=== PATIENT | female | born 1955 | race African-American/Black ===

== ENCOUNTER 2025-04-05 11:55 | Outpatient (CLI) | payer MEDICARE, SELFPAY ==
--- NOTE | ~2025-04-05 | XR_ITS ---
EXAMINATION: XR chest 2V, 04/05/2025 12:13 CDT HISTORY: Ex cigarette smoker COMPARISON: No comparisons available. Technique: 2 views obtained. Findings: Left lower lobe there is a nodule measuring 1.1 x 1 cm. The remaining lungs are clear. No pneumothorax. Heart is normal size. Mediastinal and hilar contours are within normal limits. Bony thorax no acute abnormality. Impression: Left lung nodule, CT chest recommended Reviewed, dictated and finalized at location A. Impression: Left lung nodule, CT chest recommended
== END 2025-04-05 11:56 | disposition home or self-care (01) ==
LOC: MICIMG 11:59
PROVIDERS: PCP Family Medicine; Visit Provider Family Medicine
DX: Z87.891 Personal history of nicotine dependence (principal); R91.1 Solitary pulmonary nodule
CPT/HCPCS: 71046

== ENCOUNTER 2025-05-17 12:33 | Outpatient (CLI) | payer MEDICARE, SELFPAY ==
--- NOTE | ~2025-05-17 | US_ITS ---
US thyroid INDICATION: Hyperthyroidism TECHNIQUE: Real-time sonographic images of the thyroid gland were obtained. COMPARISON: No prior studies for comparison. FINDINGS: The right thyroid lobe measures 4.3 x 2.3 x 1.5 cm. The left thyroid lobe measures 4.6 x 1.8 x 1.7 cm. There is normal echotexture and echogenicity throughout the thyroid gland. There are multiple bilateral thyroid nodules. Largest dominant mass in the right thyroid gland measures 1.7 x 1.6 x 1.5 cm and is solid, hypoechoic, taller than wide with circumscribed margins and punctate echogenic foci internally, TR 5. In the left lobe there is a solid hypoechoic circumscribed smoothly marginated mass which is wider than tall and no internal echogenic foci measuring 6 x 1.5 x 1.2 cm. There are smaller additional masses in the left lobe. IMPRESSION: 1. Recommend follow-up fine needle aspiration biopsy of dominant bilateral thyroid masses. Reviewed, dictated and finalized at location O. IMPRESSION: 1. Recommend follow-up fine needle aspiration biopsy of dominant bilateral thy roid masses.
== END 2025-05-17 12:34 | disposition home or self-care (01) ==
LOC: MICIMG 12:35
PROVIDERS: PCP Family Medicine; Visit Provider Family Medicine
DX: E05.90 Thyrotoxicosis, unspecified without thyrotoxic crisis or storm (principal)
CPT/HCPCS: 76536

== ENCOUNTER 2025-07-11 15:09 | Outpatient (CLI) | payer MEDICARE, SELFPAY ==
--- OUTSIDE RECORDS SUMMARY | 2025-07-11 15:00 | XMS_ITS | Encounter Summary ---
Author Organization [facility] [employer] [facility] Address [address] [place] [address] Care Team Providers Care Travel Med Surg Rn Name Role Phone Unavailable Primary Care Provider Unavailabl e Reason for Visit * Reason Comments Establish Care Encounter Details Date Type Department Care Team (Late st Contact Info) Description 07/11/2025 3:00 PM MOLD CAPPER HELPER Office Visit [facility] [place] [facility] - David [address] [facility] [address] [place] [address] Chralie Fair MD [address] [facility] [address] [place] [address] Chronic anemia (Primary Dx) Social History Tobacco Use Types Packs/Day Years Used Date Smoking Tobacco: Some Days Cigarettes Tobacco Cessation:Ready to Q uit: Not Asked; Counseling Given: Not Answered Alcohol Use Standard Drinks/Week Comments Yes 0 (1 standard drink = 0.6 oz pur e alcohol) Occasionally Comments Unknown Sex and Gender Information Value Date Recorded Sex Assigned at Not on file Legal Sex Female 11:43 AM CDT Gender Identity Not on file Sexual Orientation Not on file documented as of this encounter Last Filed Vital Signs Vital Sign Reading Time Taken Comments Blood Pressure 139/81 07/11/2025 2:44 PM MOLD CAPPER HELPER Pulse 81 07/11/2025 2:44 PM MOLD CAPPER HELPER Temperature 36.9 C (98.4 F) 07/11/2025 2:44 PM MOLD CAPPER HELPER Respiratory Rate 15 07/11/2025 2:44 PM MOLD CAPPER HELPER Oxygen Saturation 98% 07/11/2025 2:44 PM MOLD CAPPER HELPER Inhaled Oxygen Concentration - - Weight 52.1 kg (114 lb 12.8 oz) 07/11/2025 2:44 PM MOLD CAPPER HELPER Height 162.6 cm (5' 4) 07/11/2025 2:44 PM MOLD CAPPER HELPER Body Mass Index 19.71 07/11/2025 2:44 PM MOLD CAPPER HELPER documented in this encounter Progress Notes * Charlie Fair MD - 07/11/2025 2:45 PM CST Hematology-oncology consult Note Requesting Physician Primary Care Physician No primary care provider on file. Problem list There is no problem list on file for this patient. Previous TREATMENT ? Measurable Disease ? Reason for Visit Gerir Moreno is a 70 y.o. female who was referred for consultation for iron deficiency anemia. History of present illness This is a 70-year-old pleasant -[place] female with history of hypertension, anxiety and depression referred to me for anemia. She is quite tired and fatigued. She has lost 25 pound weight in1 year duration. She denies being a vegetarian but rarely eat red meat. She denies any previous stomach surgeries. She denies any bleeding including melena and hematochezia. She had EGD and colonoscopy done at [facility] in March 2025 that showed gastritis. She was taking oral iron but discontinued 3 weeks ago due to constipation. She is also worried about her weight loss. Denies any new lumps bumps and lymphadenopathy. She is going to have thyroid biopsy end of July due to thyroidnodule. Thyroid ultrasound was done on May 17, 2025 showed 1.7 x 1.6 x 1.5 cm right thyroid mass and biopsy was recommended. Denies any other complaints. Past Medical History Past Medical History: Diagnosis Date Anxiety state Depression Hypertension Surgical History Past Surgical History: Procedure Laterality Date HX CHOLECYSTECTOMY HX HYSTERECTOMY HX TUBAL LIGATION Medications Current Outpatient Medications Medication Sig Dispense Refill amLODIPine (NORVASC) 10 mg tablet Take 10 mg by mouth daily in the morning. busPIRone (BUSPAR) 10 mg tablet Take 1 Tablet by mouth 2 times daily. escitalopram oxalate (LEXAPRO) 20 mg tablet Take 20 mg by mouth daily. lisinopril-hydroCHLOROthiazide (ZESTORETIC) 20-12.5 mg tablet Take 2 Tablets by mouth daily. No current facility-administered medications for this visit. Allergies No Known Allergies Immunizations: There is no immunization history on file for this patient. Family History Family History Problem Relation Name Age of Onset No Known Problems Father Heart Disease Mother Diabetes Mother No Known Problems Brother No Known Problems Brother No Known Problems Brother Heart Disease Sister No Known Problems Sister No Known Problems Child No Known Problems Child Social History Social History Tobacco Use Smoking status: Some Days Types: Cigarettes Smokeless tobacco: Not on file Substance Use Topics Alcohol use: Yes Comment: Occasionally Review of Systems Constitutional: Patient did not mention fever; no night sweats; no anorexia; 25 pound weight loss in 1 year, complain of tiredness and fatigue NEENT: Patient did not mention headache; no change in vision; no change in hearing; no sore throat;no dysphagia Respiratory: Patient did not mention shortness of breath; no pleuritic chest pain; no cough; no hemoptysis Cardiac: Patient did not mention cardiac-like chest pain; no palpitations; no orthopnea; no PND; noDOE Breasts: Patient did not mention tenderness; no masses GI: Patient did not mention abdominal pain; no nausea; no vomiting; no diarrhea; no hematochezia; no melena : Patient did not mention dysuria; no frequency; no hesitancy; no hematuria CLINICAL UNIT COORDINATOR: Musculosketetal: Patient did not mention bone pain; no arthralgia; no joint swelling; no myalgia; Skin: Patient did not mention pruritis; no rash; no petechiae; no ecchymoses Endocrine: Patient did not mention polydipsia; no polyuria; no unusual weight gain Neuro: Patient did not mention headache; no change in vision; no sensory changes; no muscle weakness; no confusion; no seizures Psych: Patient did not mention anxiety; no depression; Physical Exam Vitals: As per nursing note Constitutional: Well developed, well nourished, no acute distress, non-toxic appearance Teeth and gum. No signs of infection or swelling. Eyes: PERRL, conjunctiva normal HEENT: Atraumatic, external ears normal, nose normal, oropharynx moist, no pharyngeal exudates. no sinus tenderness Neck- normal range of motion, no tenderness, supple Respiratory: No respiratory distress, normal breath sounds, no rales, no wheezing Cardiovascular: Normal rate, normal rhythm, no murmurs, no gallops, no rubs GI: Soft, nondistended, normal bowel sounds, nontender, no splenomegaly, no hepatomegaly, no mass, no rebound, no guarding : No costovertebral angle tenderness Musculoskeletal: No edema, no tenderness, no deformities. Back- no tenderness Integument: Well hydrated, no rash, Digits and nails inspection normal Lymphatic: No lymphadenopathy noted Neurologic: Alert & oriented x 3, CN 2-12 normal, normal motor function, normal sensory function, no focal deficits noted Psychiatric: Speech and behavior appropriate ? labs No results found for this or any previous visit (from the past 24 hours). Labs from March 2025 showed iron 41 saturation 10 B12 394 ferritin 15 WBC 5.7 hemoglobin 9.4 MCV 79 platelet 381,000 Pathology ? Imaging & Other Studies Performance Status? Assessment / Plan: ? Microcytic anemia. Patient is a pleasant 78-year-old -[place] female with been in good health except history of hypertension, anxiety and depression. Patient was recently found to have thyroid nodule and plan to have thyroid biopsy in July. She has been complaining of tiredness and fatigue and has lost 25 pound weight in 1 year duration. Denies any melena and hematochezia. She had EGD and colonoscopy done at [facility] on March 2025 that showed gastritis. She is intolerant to oral iron due to constipation and discontinued taking about 3 weeks ago. I have reviewed the labs. At this time I will repeat labs including CBC, CMP, iron profile, soluble transferrin receptor, B12 level, methylmalonic acid level, TSH and serum protein electrophoresis with immunofixation. My plan would be to start her on iron infusion as she is intolerant to oral iron. No need for bone marrow biopsy testing at this time. Follow-up in 2 weeks. Thyroid nodule. Ultrasound done on May 17, 2025 showed 1.7 x 1.6 x 1.5 cm right thyroid nodule.She is scheduled to have thyroid biopsy in July. Hypertension. Patient is on Zestril and amlodipine. Anxiety and depression. She is on BuSpar and Lexapro. Thank you very much for allowing me to participate in Gerri Moreno's evaluation and management. Please feel free to contact if I can be of any further assistance in your patient???s care requiring hematology or oncology evaluation. Sincerely, ? ? Charlie Fair M.D. cell TOBACCO COUNSELING She is not a tobacco/nicotine user. Charlie Fair MD ,07/11/2025 3:07 PM ? Total time spent 60 minutes, two third of the total time spent counseling patient [id number]. CC:? CAPPER HELPER documented in this encounter Plan of Treatment Upcoming Encounters Date Type Department Care Team (Late st Contact Info) Description 07/30/2025 4:30 PM MOLD CAPPER HELPER Telephone Check Up [facility] [place] [facility] - David [address] [facility] [address] [place] [address] Charlie Fair MD [address] [facility] [address] [place] [address] Scheduled Orders Name Type Priority Associated Diagnoses Orde r Schedule CBC WITH DIFFERENTIAL Lab Stat Chronic anemia Expected: 07/11/2025, Expires: 07/11/2026 COMPREHENSIVE METABOLIC PANEL Lab Stat Chronic anemia Expected: 07/11/2025, Expires: 07/11/2026 FERRITIN Lab Routine Chronic anemia Expected: 07/11/2025, Expires: 07/11/2026 IRON, TIBC, AND PERCENT SATURATION Lab Routine Chronic anemia Expected: 07/11/2025, Expires: 07/11/2026 METHYLMALONIC ACID Lab Routine Chronic anemia Expected: 07/11/2025, Expires: 07/11/2026 VITAMIN B12 AND FOLATE Lab Routine Chronic anemia Expected: 07/11/2025, Expires: 07/11/2026 TRANSFERRIN RECEPTOR TFR SOLUBLE Lab Routine Chronic anemia Expected: 07/11/2025, Expires: 07/11/2026 TSH Lab Routine Chronic anemia Expected: 07/11/2025, Expires: 07/11/2026 PROTEIN ELECTROPHORESIS W/REFLEX,SERUM Lab Routine Chronic anemia Expected: 07/11/2025, Expires: 07/11/2026 documented as of this encounter Visit Diagnoses Diagnosis Chronic anemia- Primary Anemia, unspecified documented in this encounter
[2025-07-11 15:30] LABS: Hematocrit 33.4 % (37.0-47.0); Hemoglobin 10.5 g/dL (12.0-15.0); Immature Granulocyte Percent A 0.3 % (0-0.5); Lymphocytes Absolute Auto 3.40 K/mm3 (0.9-3.2); Mean Corpuscular HGB Conc 31.4 g/dl (32-36); Mean Corpuscular Hemoglobin 23.9 pg (26-34); Mean Corpuscular Volume 76.1 fl (80-100); Nucleated Red Blood Cells Absolute Auto 0.000 K/mm3 (0.0-0.012); Nucleated Red Blood Cells Perc 0.0 % (0.0-0.2); Platelet Count Result 391 k/mm3 (150-375); Red Blood Count 4.39 M/mm3 (4.2-5.4); White Blood Count 6.5 K/mm3 (4.5-10.0)
[2025-07-11 16:30] LABS: Alanine Aminotransferase 14 U/L (6-35); Albumin Level 4.7 g/dL (3.5-5.1); Alkaline Phosphatase 78 U/L (38-126); Anion Gap 7 mmol/L (4-12); Aspartate Amino Transferase 30 U/L (14-36); Bilirubin,Total 0.8 mg/dL (0.2-1.3); Blood Urea Nitrogen 11 mg/dL (7-17); Calcium 9.7 mg/dL (8.4-10.2); Carbon Dioxide 25 mmol/L (22-30); Chloride 105 mmol/L (98-107); Estimated Glomerular Filt Rate > 60; Glucose 86 mg/dL (65-110); Iron 95 ug/dL (37-170); Potassium 3.7 mmol/L (3.4-5.0); Sodium 137 mmol/L (137-145); Total Protein 7.9 g/dL (6.3-8.2)
[2025-07-11 16:40] LABS: Percent Iron Saturation 19 % (20-50)
[2025-07-11 17:11] LABS: Ferritin 14.60 ng/mL (11.1-264)
[2025-07-11 17:14] LABS: Thyroid Stimulating Hormone 0.417 uIU/mL (0.465-4.680)
--- OUTSIDE RECORDS SUMMARY | 2025-07-11 17:47 | XMS_ITS | Continuity of Care Document ---
Author Organization [place] - [facility], [facility] Address [address] [place] [address] Care Team Providers Care Bakery Team Member Name Role Phone MCKNIGHT, EN Primary Care Provider [phone] Assessment Encounter Date Assessment Date Assessment LastModified by Organization Details LastModified Time 05/02/2025 05/02/2025 69 yo F with - ANEMIA, new - SUBCLINICAL HYPERTHYROIDISM , new - MICROSCOPIC HEMATURIA, new - LT LUNG NODULE, chronic - DEPRESSION - ANXIETY, chronic - PALPITATIONS, intermittent - HTN - UNEXPLAINED WT LOSS - EX-SMOKER (Quitted since age 27yrs) - H/O ALCOHOL DEPENDENCE CXR: 04/05/25. Annual labs: 04/02/25. D/w pt about her findings, recent labs & imagines and further plan of care. Will refer pt to Hemat and Uro. Will do US and lab. Pt is not interested in statin. All meds verified with pt. Meds as directed. Diet and exercise explained. Fall risk precautions explained. Cont f/u with Counsellor at [place] as per schedule. Cont f/u with Cardio as per schedule. Cont f/u with GI as per schedule. Cont f/u with Ophtho as per schedule. Educated pt about alarming symptoms to monitor at home. HM: WWE - Long time ago, normal as per pt. Pt declined. Mammo - 2 yrs ago. Pt declined. Risks explained. DEXA - Never. Pt declined. Risks explained. EGD & Colonoscopy - 04/11/25, gastritis ++. Cont f/u with GI as per schedule. Flu - Pt declined. Tdap - Pt declined. Pneumo - Pt declined. Shingrix, RSV - At pharmacy/HD. F/u in 3 months. TSH, US in 08/20. Annual labs in 04/20. [email or web address] Not available 05/02/2025 16:16:25 Plan of Treatment Reminders Order Date Submit Date Provider Last Modified By Organization Details Last Modified Time Details Appointments Any 15 2025 01:00P M En Mcknight MD Not available Not available Not available Lab TSH, serum or plasma 2024 [email or web address] [facility] (Lab), [address] [place], [address], 06/06/2025 12:40:59 Referral urologist referral - Please call patient to schedule an appointme nt. Thank you. 2024 [facility], [address] [place] [address] [address], [place], [address], 05/09/2025 10:01:01 hematolog ist referral - Please call patient to schedule an appointme nt. Thank you. 2024 [facility] Charlie Fair MD, [address], [place], [address], 05/09/2025 09:55:17 Procedures None recorded. Surgeries None recorded. Imaging US, thyroid - Please call patient to schedule. 2024 [facility] ([facility]), [address] [place], [address], 05/21/2025 10:48:54 Medication Orders ferrous sulfate 325 mg (65 mg iron) tablet,de layed release 2024 [email or web address] [facility] [place], [address], 06/27/2025 11:55:22 amlodipin e 10 mg tablet 2024 [facility] [address] [place], [address], 05/02/2025 16:12:35 lisinopri l 20 mg-hydroc hlorothia zide 12.5 mg tablet 2024 [facility] [address] [place], [address], 05/02/2025 16:12:35 buspirone 10 mg tablet 2024 [facility] [address] [place], [address], 05/02/2025 16:12:36 escitalop phuong 20 mg tablet 2024 [facility] [address] [place], [address], 05/02/2025 16:12:48 Patient TargetsNo targets recorded. Patient InstructionsNo instructions recorded. 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 Thank you. Referring Physician: En Mcknight [facility], Encounter Date: 05/02/2025 Urologist Referral for Micro scopic hematuria Please call patient to schedule an appointment. Thank you. Referring Physician: En Mcknight [facility], Encounter Date: 05/02/2025 Results Created Date Observation Date Name Description Value Unit Range Abnormal Flag Note LastModifiedBy Organization Detail LastModifiedTime 04/02/2004/02/2025 CBC/C OMPLE TE BLD COUNT W/DIF F white blood cells 5.7 x10'3 /uL 4.2-10 .8 Not Available [facility] (Lab) [address] [place], [address], 04/02/2025 18:56:04 04/02/20 25 04/02/2025 CBC/C OMPLE TE BLD COUNT W/DIF F red blood cells 3.84 x10'6 /uL 4.10-5 .80 low Not Available [facility] (Lab) [address] [place], [address], 04/02/2025 18:56:04 04/02/2004/02/2025 CBC/C OMPLE TE BLD COUNT W/DIF F hemoglobin 9.4 g/dL 13.2-1 7.0 low Not Available [facility] (Lab) [address] [place], [address], 04/02/2025 18:56:04 04/02/2004/02/2025 CBC/C OMPLE TE BLD COUNT W/DIF F hematocrit 30.5 % 39.3-5 0.0 low Not Available [facility] (Lab) [address] [place], [address], 04/02/2025 18:56:04 04/02/20 25 04/02/2025 CBC/C OMPLE TE BLD COUNT W/DIF F mean red cell volume 79.4 fL 80.0-9 7.0 low Not Available [facility] (Lab) [address] [place], [address], 04/02/2025 18:56:04 04/02/20 25 04/02/2025 CBC/C OMPLE TE BLD COUNT W/DIF F mean red cell hemoglobin 24.5 pg 27.0-3 3.0 low Not Available [facility] (Lab) [address] [place], [address], 04/02/2025 18:56:04 04/02/20 25 04/02/2025 CBC/C OMPLE TE BLD COUNT W/DIF F mean RBC HGB concentratio n 30.8 g/dL 31.0-3 6.0 low Not Available [facility] (Lab) [address] [place], [address], 04/02/2025 18:56:04 04/02/20 25 04/02/2025 CBC/C OMPLE TE BLD COUNT W/DIF F red cell distribution width 14.4 % 11.8-1 5.5 Not Available [facility] (Lab) [address] [place], [address], 04/02/2025 18:56:04 04/02/2004/02/2025 CBC/C OMPLE TE BLD COUNT W/DIF F platelets 381 x10'3 /uL 150-40 0 Not Available [facility] (Lab) [address] [place], [address], 04/02/2025 18:56:04 04/02/2004/02/2025 CBC/C OMPLE TE BLD COUNT W/DIF F mean platelet volume 10.3 fL 9.0-12 .4 Not Available [facility] (Lab) [address] [place], [address], 04/02/2025 18:56:04 04/02/2004/02/2025 CBC/C OMPLE TE BLD COUNT W/DIF F neutrophils 60.8 % 39.0-7 2.0 Not Available [facility] (Lab) [address] [place], [address], 04/02/2025 18:56:04 04/02/2004/02/2025 CBC/C OMPLE TE BLD COUNT W/DIF F lymphocytes 33.2 % 16.0-4 7.0 Not Available [facility] (Lab) [address] [place], [address], 04/02/2025 18:56:04 04/02/2004/02/2025 CBC/C OMPLE TE BLD COUNT W/DIF F monocytes 4.9 % 5.0-12 .0 low Not Available [facility] (Lab) [address] [place], [address], 04/02/2025 18:56:04 04/02/20 25 04/02/2025 CBC/C OMPLE TE BLD COUNT W/DIF F eosinophils 0.2 % 1.0-7. 0 low Not Available [facility] (Lab) [address] [place], [address], 04/02/2025 18:56:04 04/02/2004/02/2025 CBC/C OMPLE TE BLD COUNT W/DIF F basophils 0.5 % 0.0-2. 0 Not Available [facility] (Lab) [address] [place], [address], 04/02/2025 18:56:04 04/02/2004/02/2025 CBC/C OMPLE TE BLD COUNT W/DIF F immature granulocytes 0.4 % 0.00-0 .50 Not Available [facility] (Lab) [address] [place], [address], 04/02/2025 18:56:04 04/02/2004/02/2025 CBC/C OMPLE TE BLD COUNT W/DIF F neutrophils, absolute count 3.47 x10'3 /uL 1.5-8. 0 Not Available [facility] (Lab) [address] [place], [address], 04/02/2025 18:56:04 04/02/2004/02/2025 CBC/C OMPLE TE BLD COUNT W/DIF F lymphocytes, absolute count 1.89 x10'3 /uL 1.07-3 .43 Not Available [facility] (Lab) [address] [place], [address], 04/02/2025 18:56:04 04/02/2004/02/2025 CBC/C OMPLE TE BLD COUNT W/DIF F monocytes, absolute count 0.28 x10'3 /uL 0.29-0 .99 low Not Available [facility] (Lab) [address] [place], [address], 04/02/2025 18:56:04 04/02/2004/02/2025 CBC/C OMPLE TE BLD COUNT W/DIF F eosinophils, absolute count 0.01 x10'3 /uL 0.02-0 .53 low Not Available [facility] (Lab) [address] [place], [address], 04/02/2025 18:56:04 04/02/20 25 04/02/2025 CBC/C OMPLE TE BLD COUNT W/DIF F basophils, absolute count 0.03 x10'3 /uL 0.01-0 .08 Not Available [facility] (Lab) [address] [place], [address], 04/02/2025 18:56:04 04/02/2004/02/2025 CBC/C OMPLE TE BLD COUNT W/DIF F immature granulocytes ,absolute 0.02 x10'3 /uL 0.00-0 .05 Not Available [facility] (Lab) [address] [place], [address], 04/02/2025 18:56:04 04/02/2004/02/2025 CBC/C OMPLE TE BLD COUNT W/DIF F nucleated red blood cells 0.0 % -0 Not Available [facility] (Lab) [address] [place], [address], 04/02/2025 18:56:04 04/02/2004/02/2025 CBC/C OMPLE TE BLD COUNT W/DIF F NRBC# 0.00 x10'3 /uL Not Available [facility] (Lab) [address] [place], [address], 04/02/2025 18:56:04 04/02/2004/02/2025 URINA LYSIS COMPL ETE/I RIS W/RFX color DARK-Y ELLOW Not Available [facility] (Lab) [address] [place], [address], 04/02/2025 19:04:40 04/02/20 25 04/02/2025 URINA LYSIS COMPL ETE/I RIS W/RFX appear EXTRA TURBID abnormal Not Available [facility] (Lab) [address] [place], [address], 04/02/2025 19:04:40 04/02/20 25 04/02/2025 URINA LYSIS COMPL ETE/I RIS W/RFX specific gravity 1.023 1.001- 1.030 Not Available [facility] (Lab) [address] [place], [address], 04/02/2025 19:04:40 04/02/2004/02/2025 URINA LYSIS COMPL ETE/I RIS W/RFX pH 6.5 pH_un its 5.0-9. 0 Not Available [facility] (Lab) [address] [place], [address], 04/02/2025 19:04:40 04/02/20 25 04/02/2025 URINA LYSIS COMPL ETE/I RIS W/RFX leukocytes NEGATI VE shruthi/u L negati ve- Not Available [facility] (Lab) [address] [place], [address], 04/02/2025 19:04:40 04/02/20 25 04/02/2025 URINA LYSIS COMPL ETE/I RIS W/RFX nitrite NEGATI VE negati ve- Not Available [facility] (Lab) [address] [place], [address], 04/02/2025 19:04:40 04/02/20 25 04/02/2025 URINA LYSIS COMPL ETE/I RIS W/RFX protein 20 mg/dL negati ve- abnormal Not Available [facility] (Lab) [address] [place], [address], 04/02/2025 19:04:40 04/02/20 25 04/02/2025 URINA LYSIS COMPL ETE/I RIS W/RFX glucose NORMAL mg/dL normal - Not Available [facility] (Lab) [address] [place], [address], 04/02/2025 19:04:40 04/02/20 25 04/02/2025 URINA LYSIS COMPL ETE/I RIS W/RFX ketones NEGATI VE mg/dL negati ve- Not Available [facility] (Lab) [address] [place], [address], 04/02/2025 19:04:40 04/02/20 25 04/02/2025 URINA LYSIS COMPL ETE/I RIS W/RFX urobilinogen 2 mg/dL normal - abnormal Not Available [facility] (Lab) [address] [place], [address], 04/02/2025 19:04:40 04/02/20 25 04/02/2025 URINA LYSIS COMPL ETE/I RIS W/RFX bilirubin NEGATI VE mg/dL negati ve- Not Available [facility] (Lab) [address] [place], [address], 04/02/2025 19:04:40 04/02/20 25 04/02/2025 URINA LYSIS COMPL ETE/I RIS W/RFX blood NEGATI VE mg/dL negati ve- Not Available [facility] (Lab) [address] [place], [address], 04/02/2025 19:04:40 04/02/20 25 04/02/2025 URINA LYSIS COMPL ETE/I RIS W/RFX white blood cells NONE /i??h pfi?? 0-8 Not Available [facility] (Lab) [address] [place], [address], 04/02/2025 19:04:40 04/02/20 25 04/02/2025 URINA LYSIS COMPL ETE/I RIS W/RFX red blood cells 11-20 /i??h pfi?? 0-4 abnormal Not Available [facility] (Lab) [address] [place], [address], 04/02/2025 19:04:40 04/02/20 25 04/02/2025 URINA LYSIS COMPL ETE/I RIS W/RFX bacteria NONE none seen- Not Available [facility] (Lab) [address] [place], [address], 04/02/2025 19:04:40 04/02/20 25 04/02/2025 URINA LYSIS COMPL ETE/I RIS W/RFX mucous MANY /i??l pfi?? none seen- abnormal Not Available [facility] (Lab) [address] [place], [address], 04/02/2025 19:04:40 04/02/20 25 04/02/2025 URINA LYSIS COMPL ETE/I RIS W/RFX squamous epithelial PACKED FIELD /i??l pfi?? abnormal Not Available [facility] (Lab) [address] [place], [address], 04/02/2025 19:04:40 04/02/20 25 04/02/2025 URINA LYSIS COMPL ETE/I RIS W/RFX calcium oxalate crystal OCCASI ONAL /i??h pfi?? none seen- abnormal Not Available [facility] (Lab) [address] [place], [address], 04/02/2025 19:04:40 04/02/20 25 04/02/2025 COMPR EHENS ROSANA METAB OLIC PANEL sodium 137 mmol/ L 137-14 5 Not Available [facility] (Lab) [address] [place], [address], 04/02/2025 19:35:43 04/02/20 25 04/02/2025 COMPR EHENS ROSANA METAB OLIC PANEL potassium 4.1 mmol/ L 3.5-5. 1 Not Available [facility] (Lab) [address] [place], [address], 04/02/2025 19:35:43 04/02/2004/02/2025 COMPR EHENS ROSANA METAB OLIC PANEL chloride 106 mmol/ L 98-107 Not Available [facility] (Lab) [address] [place], [address], 04/02/2025 19:35:43 04/02/20 25 04/02/2025 COMPR EHENS ROSANA METAB OLIC PANEL carbon dioxide 28 mmol/ L 22-30 Not Available [facility] (Lab) [address] [place], [address], 04/02/2025 19:35:43 04/02/20 25 04/02/2025 COMPR EHENS ROSANA METAB OLIC PANEL anion gap 7.1 mmol/ L 14-22 low Not Available [facility] (Lab) [address] [place], [address], 04/02/2025 19:35:43 04/02/2004/02/2025 COMPR EHENS ROSANA METAB OLIC PANEL glucose 109 mg/dL 70-99 high Not Available [facility] (Lab) [address] [place], [address], 04/02/2025 19:35:43 04/02/20 25 04/02/2025 COMPR EHENS ROSANA METAB OLIC PANEL BUN 9 mg/dL 8-19 Not Available [facility] (Lab) [address] [place], [address], 04/02/2025 19:35:43 04/02/20 25 04/02/2025 COMPR EHENS ROSANA METAB OLIC PANEL creatinine 0.57 mg/dL 0.66-1 .25 low Not Available [facility] (Lab) [address] [place], [address], 04/02/2025 19:35:43 04/02/20 25 04/02/2025 COMPR EHENS ROSANA METAB OLIC PANEL GFR >60 Refer ence Range : [place] ge GFR Healt hy Adult : >60 mL/mi n/1.7 3 m2 Chron ic Kidne y Disea se: 15-60 mL/mi n/1.7 3 m2 Kidne y Failu re: <15/m L/min /1.73 m2 www.n iddk. nih.g ov The MDRD study equat ion has not been valid ated in child kayleen <18 years of age; pregn ant women ; the elder ly >85 years of age; or in some racia l or ethni c subgr oups, such as Hispa nics. Outsi de the valid ated sailaja eters , estim ated GFR is less accur ate, requi ring clini william judgm ent on a case- by-ca se basis . Clini william inter preta tion for other races and ages must be made by the clini jim. The MDRD study equat ion has not been valid ated for the evalu ation of serum creat inine relat ed to nutri natalya l statu s or medic ation usage . For perso ns <18 years of age, a pedia tric GFR calcu lator is avail able on the [facility] websi te: https ://elvia fernández.oneal ng.o reno/pr ofess ional s/kdo qi/gf r_cal culat or Not Available [facility] (Lab) [address] [place], [address], 04/02/2025 19:35:43 04/02/20 25 04/02/2025 COMPR EHENS ROSANA METAB OLIC PANEL alkaline phosphatase 52 U/L 38-126 Not Available [facility] (Lab) [address] [place], [address], 04/02/2025 19:35:43 04/02/20 25 04/02/2025 COMPR EHENS ROSANA METAB OLIC PANEL alanine aminotransfe rase 13 U/L 0-35 Not Available [facility] (Lab) [address] [place], [address], 04/02/2025 19:35:43 04/02/2004/02/2025 COMPR EHENS ROSANA METAB OLIC PANEL aspartate aminotransfe rase 22 U/L 15-37 Not Available [facility] (Lab) [address] [place], [address], 04/02/2025 19:35:43 04/02/2004/02/2025 COMPR EHENS ROSANA METAB OLIC PANEL bilirubin, total 0.40 mg/dL 0.20-1 .30 Not Available [facility] (Lab) [address] [place], [address], 04/02/2025 19:35:43 04/02/20 25 04/02/2025 COMPR EHENS ROSANA METAB OLIC PANEL calcium 9.1 mg/dL 8.4-10 .2 Not Available [facility] (Lab) [address] [place], [address], 04/02/2025 19:35:43 04/02/2004/02/2025 COMPR EHENS ROSANA METAB OLIC PANEL total protein 6.4 g/dL 6.3-8. 2 Not Available [facility] (Lab) [address] [place], [address], 04/02/2025 19:35:43 04/02/2004/02/2025 COMPR EHENS ROSANA METAB OLIC PANEL albumin 4.2 g/dL 3.0-4. 4 Not Available [facility] (Lab) [address] [place], [address], 04/02/2025 19:35:43 04/02/2004/02/2025 COMPR EHENS ROSANA METAB OLIC PANEL globulin 2.2 g/dL 2.6-4. 2 low Not Available [facility] (Lab) [address] [place], [address], 04/02/2025 19:35:43 04/02/20 25 04/02/2025 COMPR EHENS ROSANA METAB OLIC PANEL A/G ratio 1.9 ratio 1.0-2. 0 Not Available [facility] (Lab) [address] [place], [address], 04/02/2025 19:35:43 04/02/2004/02/2025 MAGNE SIUM magnesium 1.8 mg/dL 1.6-2. 3 Not Available [facility] (Lab) [address] [place], [address], 04/02/2025 19:35:53 04/02/2004/02/2025 LIPID PANEL cholesterol 200 mg/dL 140-19 9 high NIH DEREJE NSUS RECOM MENDA TION FOR MERE STERO L: ADULT CHILD LOW RISK: <200 <170 BORDE RLINE : <200- 239 ----- HIGH RISK: >240 >200 Not Available [facility] (Lab) [address] [place], [address], 04/02/2025 19:40:58 04/02/2004/02/2025 LIPID PANEL triglyceride s 65 mg/dL 0-150 NIH DEREJE NSUS REPOR T RECOM MENDA TION FOR TRIGL YCERI DAMARIS: ADULT CHILD LOW RISK: <150 ----- BODER LINE: 150-1 99 ----- HIGH RISK: >200 ----- Not Available [facility] (Lab) [address] [place], [address], 04/02/2025 19:40:58 04/02/2004/02/2025 LIPID PANEL HDL cholesterol 111 mg/dL 40- Not Available [facility] (Lab) [address] [place], [address], 04/02/2025 19:40:58 04/02/2004/02/2025 LIPID PANEL LDL cholesterol, calculated 76 mg/dL 0-130 NIH DEREJE NSUS REPOR T RECOM MENDA TIONS FOR LDL: ADULT CHILD LOW RISK <130 <110 (OPTI MAL LDL) <100 ----- BORDE RLINE : 130-1 59 ----- HIGH RISK: >160 >130 A TRIGL YCERI DE RESUL T >400 INVAL IDATE S THE CALCU LATIO N FOR LDL FRACT IONAT ION - THE LDL RESUL T WILL NOT BE REPOR KENNY. Not Available [facility] (Lab) [address] [place], [address], 04/02/2025 19:40:58 04/02/2004/02/2025 IRON/ TIBC PANEL total iron binding capacity 400 mcg/d L 265-47 5 Not Available [facility] (Lab) [address] [place], [address], 04/02/2025 19:47:35 04/02/20 25 04/02/2025 IRON/ TIBC PANEL % transferrin saturation 10 % 20-55 low Not Available [facility] (Lab) [address] [place], [address], 04/02/2025 19:47:35 04/02/20 25 04/02/2025 IRON/ TIBC PANEL unsaturated iron bind capacity 359 mcg/d L 126-38 2 Not Available [facility] (Lab) [address] [place], [address], 04/02/2025 19:47:35 04/02/20 25 04/02/2025 IRON/ TIBC PANEL iron 41 mcg/d L 42-175 low Not Available [facility] (Lab) [address] [place], [address], 04/02/2025 19:47:35 04/02/20 25 04/02/2025 HEMOG LOBIN A1C HA1C 5.5 % 4.0-6. 0 Diabe pasha Scree cj Crite zoila: <5.7% Consi stent with absen ce of diabe pasha 5.7-6 .4% Consi stent with incre ased risk for diabe pasha (pred iabet es) >OR=6 .5% Consi stent with diabe pasha REFER ENCE: Diabe pasha Care 2015, 39(Olson ppl.1 ):s13 -s22 Not Available [facility] (Lab) [address] [place], [address], 04/02/2025 19:44:06 04/02/20 25 04/02/2025 VITAM IN B12 ([place] LIGIA ) vb12 394 pg/mL 239-93 1 Not Available [facility] (Lab) [address] [place], [address], 04/02/2025 20:57:03 04/02/20 25 04/02/2025 FOLAT E, SERUM /PLAS MA folate 7.49 NG/mL 2.76-2 0.0 Not Available [facility] (Lab) [address] [place], [address], 04/02/2025 20:57:07 04/02/20 25 04/02/2025 TSH W/REF DEMETRICE FT4 TSH with reflex free T4 0.185 uIU/m L 0.465- 4.680 low Not Available [facility] (Lab) [address] [place], [address], 04/02/2025 21:01:41 04/02/20 25 04/02/2025 JOSE RAMON TIN ferritin 15 NG/mL 11.1-2 64 Not Available [facility] (Lab) [address] [place], [address], 04/02/2025 21:01:46 04/02/20 25 04/02/2025 T4 FREE free T4 0.96 NG/dL 0.78-2 .19 Not Available [facility] (Lab) [address] [place], [address], 04/02/2025 21:38:03 06/06/20 25 06/06/2025 TSH W/REF DEMETRICE FT4 TSH with reflex free T4 0.107 uIU/m L 0.465- 4.680 low Not Available [facility] (Lab) [address], [place], [address], 06/06/2025 21:31:58 04/05/20 25 04/05/2025 XR, chest , 2 view No observ ation record ed. [email or web address] [facility] [address], [place], [address], 05/02/2025 16:07:52 05/17/2005/17/2025 US, thyro id No observ ation record ed. [email or web address] [facility] [address], [place], [address], 05/21/2025 11:21:45 Result Notes None recorded. Problems Name Problem SNOMED Code Status Onset Date Resolution Date Notes Provider Name and Address Organization Details Recorded Time Hypertensive disorder 88835744 Active Not Available [facility] 3 11:45:44 Diverticulosi s of colon without diverticuliti s 045426776 Active Not Available [facility] 3 11:45:44 Urinary tract infectious disease 62072224 Active Not Available [facility] 3 11:45:44 Anxiety 03645460 Active 2017 Not Available [facility] 3 11:45:44 Mixed anxiety and depressive disorder 082487068 Active 2022 Not Available [facility] 3 11:45:44 Essential hypertension 62819405 Active 2022 Not Available [facility] 3 11:45:44 Hyperlipidemi a 69932608 Active 2022 Yoanna Saxena MD [address], [facility] [address], [place], [address] , [place] [facility] 3 10:32:15 Depressive disorder 23396685 Active 2023 En Mcknight MD [address], [place], [address] , [facility] [employer] 5 16:17:30 Thyroid stimulating hormone level below reference range 403776489 Active 2023 AI Grier [address], [place], [address] , [facility] [employer] 4 12:13:24 Anemia 966416366 Active 2023 AI Grier [address], [place], [address] , [employer] 4 12:13:33 Serum vitamin B12 below reference range 447207702 Active 2023 AI Grier [address], [place], [address] , [facility] - [facility] [employer] 4 10:45:45 Abnormal weight 22449699 Active 2024 Frances Wilson RN [facility] [place] [place] [employer] 5 09:11:42 Benign hypertension 03737822 Active 2024 En Mcknight MD [address], [place], [address] , [employer] 5 09:26:32 Chronic anemia 822687011 Active 2024 En Mcknight MD [address], [address], [place], [address] , [facility] - [facility] [employer] 5 09:26:39 Loss of appetite 68909305 Active 2024 En Mcknight MD [address], [place], [address] , [employer] [facility] 5 09:27:05 Intermittent palpitations [id number] Active 2024 En Mcknight MD [address], [address], [place], [address] , [facility] [employer] [facility] [place] [employer] [facility] 5 09:34:15 Unintentional weight loss [id number] Active 2024 Angela Mays MD [address], [address], [place], [address] , [employer] 14:51:26 History of alcohol abuse 077236093 Active 2024 En Mcknight MD [address], [address], [place], [address] , [employer] 16:17:30 Chronic anxiety 533837316 Active 2024 En Mcknight MD [address], [address], [place], [address] , [employer] 10:37:42 Ex-cigarette smoker 459735689 Active 2024 En Mcknight MD [address], [address], [place], [address] , [employer] 10:50:21 Nodule of lung 088270978 Active 2024 En Mcknight MD [address], [address], [place], [address] , [employer] 14:03:31 Microscopic hematuria 672495973 Active 2024 En Mcknight MD [address], [place], [address] , [employer] 16:01:11 Subclinical hyperthyroidi sm 378859867 Active 2024 En Mcknight MD [address], [address], [place], [address] , [employer] 16:01:27 Multinodular goiter 880168829 Active 2024 Jose Amor MD [address], [address], [place], [address] , [employer] 5 12:20:41 Thyroid nodule 428096820 Active 2024 DONATO Lopez, [facility] [employer] [facility] 5 12:17:36 Problem Notes None recorded. Procedures Surgical History Date Name Laterality Status Provider Name and Address Organization Details Recorded Time 03/09/20 24 Medicare Wellness CPT Code, subsequent completed October DONATO Tovar [facility] [employer] [facility] 02/03/2024 15:49:13 01/12/20 23 Medicare Wellness CPT Code, Initial completed Abimbola Manzo RN [facility] [employer] [facility] 01/08/2023 14:15:52 03/10/20 10 Cholecystectomy completed Frances Wilson RN [facility] [employer] [facility] 02/19/2025 09:27:16 12/30/18 99 hysterectomy completed Frances Wilson RN [facility] 02/19/2025 09:25:28 10/31/18 85 extraction of wisdom tooth completed Frances Wilson RN [facility] 02/19/2025 09:26:46 Imaging Results None recorded. Procedure Notes None recorded. Medical Equipment None Reported. Allergies Allergen ID Allergen Name Allergen Category Reaction Reaction Severity Criticality Documentation Date Start Date Code Code System Note Provider Name and Address Organization Details Recorded Time ibuprofen medicatio n Not available Not available Not available 09/23/2022 5640 RxNorm Not Available [facility] 3 08:14:04 amoxicill in medicatio n Not available Not available Not available 09/23/2022 723 RxNorm Not Available [facility] 3 08:14:04 Medications Name Sig Start Date Stop Date Status Note LastModified by Organization Details LastModified Time lisinopri l 20 mg-hydroc hlorothia zide 12.5 mg tablet Take 2 tablets by mouth once daily QAM 2024 active Not Available Not Available Not Avai lable amlodipin e 5 mg tablet TAKE 1 TABLET BY MOUTH ONCE DAILY 01/11 completed Not Available Not Available Not Available amlodipin e 10 mg tablet Take 1 tablet every day by oral route in the morning for 30 days. 2024 active Not Available Not Available Not Avai lable ferrous sulfate 325 mg (65 mg iron) tablet Take 1 tablet every day by oral route for 30 days. 04/02 completed Not Available Not Available Not Available buspirone 10 mg tablet Take 1 tablet every 12 hours by oral route as needed for 90 days. 2024 active Not Available Not Available Not Avai lable lisinopri l 20 mg-hydroc hlorothia zide 25 mg tablet Take 2 tabs daily 03/09 completed dose adjustme nt Not Available Not Available Not Available cyanocoba ligia (vit B-12) 1,000 mcg sublingua l tablet Place 1 tablet twice a day by sublingu al route for 30 days. 2023 active Not Available Not Available Not Avai lable lorazepam 1 mg tablet Take 1 tablet every 8 hours by oral route as needed. 07/06 completed Not Available Not Available Not Available ferrous sulfate 325 mg (65 mg iron) tablet,de layed release Take 1 tablet twice a day by oral route after meal(s) for 90 days. 06/27 completed Not Available Not Available Not Available fluoxetin e 20 mg capsule Take 1 capsule by mouth once daily 01/11 completed Not Available Not Available Not Available escitalop phuong 10 mg tablet TAKE 1 TABLET BY MOUTH ONCE DAILY 03/09 completed dose adjustme nt Not Available Not Available Not Available escitalop phuong 20 mg tablet Take 1 tablet every day by oral route as directed for 90 days. 2024 active Not Available Not Available Not Avai lable bupropion HCl XL 150 mg 24 hr tablet, extended release TAKE 1 TABLET BY MOUTH ONCE DAILY 02/06 completed Not Available Not Available Not Available peg 3350-elec trolytes 236 gram-22.7 4 gram-6.74 gram-5.86 gram solution TAKE DIRECTED 05/02 completed Not Available Not Available Not Available Vitals Date Recorded Body height Body mass index (BMI) Body weight Body temperature Oxygen saturation Heart rate Systolic And Diastolic Provider Name and Address Organization Details Last Updated DateTime 162.56 cm 19.8 kg/m2 22500.8 7 g 97.3 [degF] 97 % 76 /min 130/64 mm[Hg] Frances Wilson RN [place] - [facility] [employer] 16:05:59 Social History Question Answer Notes LastModified by [employer] Details LastModified Time Tobacco Smoking Status Former Smoker Frances Wilson RN [facility] [place] [place] - [facility] [employer] [facility] 02/19/2025 09:24:50 What Is Your Level Of Caffeine Consumption? Occasional 3 Glasses Of Tea Per Day [email or web address] Information not available 02/19/2025 Which Illicit Or Recreational Drugs Have You Used? Smoke CBD Information not available 02/19/2025 When Did You Quit Smoking? 16+yearssincel eric Quit At Age 27 [email or web address] Information not available 02/19/2025 How Many Years Have You Used Illicit Or Recreational Drugs? 2 [email or web address] Information not available 02/19/2025 What Is Your Current Pack Years? 10-19packyears [email or web address] Information not available 02/19/2025 At What Age Did You Start Smoking Tobacco? 17 [email or web address] Information not available 02/19/2025 How Much Tobacco Do You Smoke? 0.25 PPD [email or web address] Information not available 02/19/2025 How Many Years Have You Smoked Tobacco? 10 [email or web address] Information not available 02/19/2025 Have You Used IV Drugs? No [email or web address] Information not available 02/19/2025 Sex: Unknown Functional Status Question Answer Note LastModified by Organizat ion Details LastModified Time Do you use any illicit or recreational drugs? Yes [email or web address] Information not available 02/19/2025 Do you or have you ever used any other forms of tobacco or nicotine? No [email or web address] Information not available 02/19/2025 What is your level of alcohol consumption? None [email or web address] Information not available 02/19/2025 Mental Status None recorded. Family History Relationship Description Onset Age of this Age Resolved Age Notes LastModified by Organization Details LastModified Time Mother Essential hypertension 40 69 8 aunts also have high BP [email or web address] Not available 02/19/2025 09:16:47 Mother Congestive heart failure 69 [email or web address] Not available 02/19 09:17:17 Mother Diabetes mellitus 69 Not available 02/19 09:17:42 Mother Cardiomegaly 69 [email or web address] Not kirstin ilable 02/19/2025 09:18:10 Mother Dialysis finding 69 69 [email or web address] Not available 02/19 09:22:22 Paternal Uncle Malignant neoplasm of colon 67 71 [email or web address] Not available 02/19 09:18:51 Father Depressive disorder 30 [email or web address] Not available 02/19 09:20:28 Brother Depressive disorder 58 64 Half Siblin g shared same Mom [email or web address] Not available 02/19/2025 09:20:28 Paternal Grandmother Anemia 102 Not available 09:21:16 Notes:NO ENT Medical History No medical history recorded. Gynecological HistoryNo gynecological history recorded. Obstetrics History GPAL:G 0 P 0 0 0 0 Past Encounters Encounter ID Performer Location Encounter Start Date Encounter Closed Date Diagnosis/Indication Diagnosis SNOMED-CT Code Diagnosis ICD10 Code Diagnosis IMO Codes Diagnosis Note [id number] En Mcknight MD [address] [address] 04/02/2025 10:21:47 04/02/2025 10:57:08 Depressive disorder 19102288 F32.A Benign hypertension 1072 5009 I10 288153 Chronic anemia 297801365 D64.9 671261 Loss of appetite 7287944 6 R63.0 28073 Intermitte nt palpitations 964880449 R00.2 68094842 History of alcohol abuse 320805912 F10.10 Chronic anxiety 34305043 9 F41.9 015652 Ex-cigarette smoker 2810 68457 Z87.891 307177 Quitted since age 27yrs [id number] En Mcknight MD [address] [address] 05/02/2025 15:55:55 05/02/2025 16:25:12 Depressive disorder 21186527 F32.A Benign hypertension 1072 5009 I10 974022 Chronic anemia 855674621 D64.9 569280 Loss of appetite 6862348 6 R63.0 40394 Intermitte nt palpitations 201733062 R00.2 24580797 History of alcohol abuse 032626128 F10.10 Chronic anxiety 21662637 9 F41.9 486336 Ex-cigarette smoker 2810 03750 Z87.891 156002 Quitted since age 27yrs Microscopic hematuria 19 5443870 R31.29 644989 Subclinica l hyperthyroidism 260307197 E05.90 244985 Nodule of lung 331888956 R91.1 845332 Health Concerns Section Related Observation LastModified by Organization Detai ls LastModified Time None Recorded Concern Status LastModified by Organization Details LastModified Time None Recorded Payers Encounter Date Sequence Insurance Name Policy Number Policy Millard Covered Member ID Millard Member ID Guarantor Name 05/02/2025 1 [place] Gerri Moreno [id number] 2 Gerrimandy Moreno Notes Date Note Type Note Provider Name and Address Organization Details Recorded Time 05/02/2025 text/html Pt is here for f/u on her annual labs and cxr. Feeling overall better. Denies any problem with meds. Denies any new concern. Pt has not gone for CT chest yet. Pt says she has the lung nodule for last many years. Pt is f/u with Cardio for her palpitations and will be getting more testing with them. Pt saw GI for her wt loss and got EGD and c-scope done on 04/11/25. C/o unexplained wt loss for last couple months. Pt denies any BM changes, no blood in stool. Doing better with her mood. Denies any mood swings/SI/HI. Pt's has bad Parkinson's and dementia and she is busy taking care of him. Pt has good help at home too. En Mcknight MD [address] [place] [address], [facility] [address], [place], [address], [place] [facility] [employer] 05/02/2025 16:32:09 OBGyn Episode No OBEpisode recorded.
--- OUTSIDE RECORDS SUMMARY | 2025-07-11 17:47 | XMS_ITS | Clinical Summary ---
Author Organization [facility] Adriano Barrientos Address [address] [place] [address] Care Team Providers Care Resource Room Special Education Teacher Name Role Phone Unavailable Primary Care Provider Unavailabl e Allergies No known active allergies Medications amLODIPine (NORVASC) 10 mg tablet Take 10 mg by mouth daily in the morning. 07/05/2025 Active busPIRone (BUSPAR) 10 mg tablet Take 1 Tablet by mouth 2 times daily. 04/02/2025 Active escitalopram oxalate (LEXAPRO) 20 mg tablet Take 20 mg by mouth daily. 04/18/2025 Active lisinopril-hydr oCHLOROthiazide (ZESTORETIC) 20-12.5 mg tablet Take 2 Tablets by mouth daily. 07/05/2025 Active Active Problems No known active problems Encounters Date Type Department Care Team Description 07/11/2025 3:00 PM 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 Office Visit [facility] Oncology and Hematology - [place] [address] [place] [address] Charlie Fair MD Chronic anemia (Primary Dx) from Last 3 Months Family History Medical History Relation Name Comments No Known Problems Brother 1 No Known Problems Brother 2 No Known Problems Brother 3 No Known Problems Child 1 No Known Problems Child 2 No Known Problems Father Diabetes Mother Heart Disease Mother Heart Disease Sister 1 No Known Problems Sister 2 Relation Name Status Comments Brother 1 Brother 2 Alive Brother 3 Child 1 Alive Child 2 Alive Father Alive Mother Sister 1 Alive Sister 2 Social History Tobacco Use Types Packs/Day Years [...] on file Sexual Orientation Not on file Last Filed Vital Signs Vital Sign Reading Time Taken Comments Blood Pressure 139/81 07/11/2025 2:44 PM 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 Pulse 81 07/11/2025 2:44 PM 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 Temperature 36.9 C (98.4 F) 07/11/2025 2:44 PM 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 Respiratory Rate 15 07/11/2025 2:44 PM 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 Oxygen Saturation 98% 07/11/2025 2:44 PM 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 Inhaled Oxygen Concentration - - Weight 52.1 kg (114 lb 12.8 oz) 07/11/2025 2:44 PM 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 Height 162.6 cm (5' 4) 07/11/2025 2:44 PM 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 Body Mass Index 19.71 07/11/2025 2:44 PM 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 Plan of Treatment Upcoming Encounters Date Type Department Care Team (Late st Contact Info) Description 07/30/2025 4:30 PM 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[employer] Telephone Check Up [facility] Oncology and Hematology - [place] [address] [facility] [address] [place] [address] Charlie Fair MD [address] [facility] [address] [place] [address] Health Maintenance Due Date Last Done Comments DTAP/TDAP/TD VACCINES (1 - Tdap) 1973 BREAST CANCER SCREENING 1994 FIT-DNA Q 3 years 1999 FIT/FOBT Q 1 year 1999 Flex Sig/CT Colonography Q 5 years 1999 PNEUMOCOCCAL VACCINE 50+ YEARS (1 of 1 - PCV) 06/15/20 04 ZOSTER VACCINE (1 of 2) 2004 OSTEOPOROSIS SCREENING 2019 INFLUENZA VACCINE (#1) 2025 COLORECTAL SCREENING 07/09/2026 07/09/2016 Colorectal Cancer Screening 07/09/2026 RSV VACCINE (60+ or ) (1 - 1-dose 75+ series) 2029 Insurance MEDICARE PART A AND B
--- OUTSIDE RECORDS SUMMARY | 2025-07-11 17:47 | XMS_ITS | Continuity of Care Document ---
Author Organization [place] - [facility] [employer] [facility] [place] Address [address] [place] [address] Care Team Providers Care Rn Cardiology Name Role Phone EN MCKNIGHT Primary Care Provider [phone] Assessment No assessment recorded. Plan of Treatment Reminders Order Date Submit Date Provider Last Modified By Organization Details Last Modified Time Details Appointments Any 15 026 01:00PM En Mcknight MD Not available Not available Not available Lab None record ed. Referral None record ed. Procedures None record ed. Surgeries None record ed. Imaging None record ed. Medication Orders None record ed. Patient TargetsNo targets recorded. Patient InstructionsNo instructions recorded. Reason for Referral None Reported. Results Created Date Observation Date Name Description Value Unit Range Abnormal Flag Note LastModifiedBy Organization Detail LastModifiedTime 06/06/2006/06/2025 TSH W/REF DEMETRICE FT4 TSH with reflex free T4 0.107 uIU/m L 0.465- 4.680 low Not Available [facility] (Lab) [address] [place], [address], 06/06/2025 21:31:58 06/06/20 25 06/06/2025 T4 FREE free T4 1.06 NG/dL 0.78-2 .19 Not Available [facility] (Lab) [address] [place], [address], 06/06/2025 22:07:43 05/17/20 25 05/17/2025 [place], thyro id No observ ation record ed. [email or web address] [facility] [address], [place], [address], 05/21/2025 11:21:45 Result Notes None recorded. Problems Name Problem SNOMED Code Status Onset Date Resolution Date Notes Provider Name and Address Organization Details Recorded Time Hypertensive disorder 65295311 Active Not Available [facility] 3 11:45:44 Diverticulosi s of colon without diverticuliti s 945041090 Active Not Available [facility] 3 11:45:44 Urinary tract infectious disease 97284430 Active Not Available [facility] 3 11:45:44 Anxiety 56140170 Active 2017 Not Available [facility] 3 11:45:44 Mixed anxiety and depressive disorder 039635292 Active 2022 Not Available [facility] 3 11:45:44 Essential hypertension 10157256 Active 2022 Not Available [facility] 3 11:45:44 Hyperlipidemi a 83780950 Active 2022 Yoanna Saxena MD [address], [address], [place], [address] , [employer] 3 10:32:15 Depressive disorder 28142362 Active 2023 En Mcknight MD [address], [place], [address] , [employer] [facility] [employer] 5 16:17:30 Thyroid stimulating hormone level below reference range 343080372 Active 2023 AI Grier [address], [place], [address] , [employer] 4 12:13:24 Anemia 481999247 Active 2023 AI Grier [address], [place], [address] , [employer] 4 12:13:33 Serum vitamin B12 below reference range 658937351 Active 2023 AI Grier [address], [place], [address] , [facility] [employer] [facility] [employer] 4 10:45:45 Abnormal weight 23621094 Active 2024 Frances Wilson RN [facility], [place] - [facility] [employer] 5 09:11:42 Benign hypertension 03726408 Active 2024 En Mcknight MD [address], [place], [address] , [facility] [employer] [facility] [employer] 5 09:26:32 Chronic anemia 475024475 Active 2024 En Mcknight MD [address], [place], [address] , [facility] [employer] [facility] [employer] 5 09:26:39 Loss of appetite 43312093 Active 2024 En Mcknight MD [address], [place], [address] , [facility] [employer] [facility] [employer] 5 09:27:05 Intermittent palpitations 530839584 Active 2024 En Mcknight MD [address], [place], [address] , [facility] [employer] [facility] [employer] 5 09:34:15 Unintentional weight loss 470603001 Active 2024 Angela Mays MD [address], [place], [address] , [facility] [employer] 5 14:51:26 History of alcohol abuse 008083261 Active 2024 En Mcknight MD [address], [place], [address] , [facility] [employer] 5 16:17:30 Chronic anxiety 301749372 Active 2024 En Mcknight MD [address], [place], [address] , [facility] [employer] [facility] [employer] 5 10:37:42 Ex-cigarette smoker 348333077 Active 2024 En Mcknight MD [address] [facility], [place] [address], [place], [address] , [email or web address] 10:50:21 Nodule of lung 996716728 Active 2024 En Mcknight MD [address] [facility], [place] [address], [place], [address] , [email or web address] 14:03:31 Microscopic hematuria 094155340 Active 2024 En Mcknight MD [address] [facility], [place] [address], [place], [address] , [email or web address] 16:01:11 Subclinical hyperthyroidi sm 645393354 Active 2024 En Mcknight MD [address] [facility], [address], [address] , [email or web address] 16:01:27 Multinodular goiter 005937541 Active 2024 Jose Amor MD [address] [facility], [place] [address], [place], [address] , [email or web address] 12:20:41 Thyroid nodule 355286392 Active 2024 Allyson Tinoco RN [facility], [email or web address] 5 12:17:36 Problem Notes None recorded. Procedures Surgical History Date Name Laterality Status Provider Name and Address Organization Details Recorded Time 03/09/20 24 Medicare Wellness CPT Code, subsequent completed Gertrude Tovar RN [place] [employer] 02/03/2024 15:49:13 01/12/20 23 Medicare Wellness CPT Code, Initial completed Abimbola Manzo RN [place] [employer] 01/08/2023 14:15:52 03/10/20 10 Cholecystectomy completed Frances Wilson RN [facility] [employer] 02/19/2025 09:27:16 12/30/18 99 hysterectomy completed Frances Wilson RN [facility] 02/19/2025 09:25:28 10/31/18 85 extraction of wisdom tooth completed Frances Wilson RN [place] [facility] 02/19/2025 09:26:46 Imaging Results None recorded. Procedure Notes None recorded. Medical Equipment None Reported. Allergies Allergen ID Allergen Name Allergen Category Reaction Reaction Severity Criticality Documentation Date Start Date Code Code System Note Provider Name and Address Organization Details Recorded Time ibuprofen medicatio n Not available Not available Not available 09/23/2022 5640 RxNorm Not Available [facility] 3 08:14:04 amoxicill in medicatio n Not available Not available Not available 09/23/2022 723 RxNorm Not Available [facility] 3 08:14:04 Medications Name Sig Start Date Stop Date Status Note LastModified by Organization Details LastModified Time lisinopri l 20 mg-hydroc hlorothia zide 12.5 mg tablet Take 2 tablets by mouth once daily [facility] 2024 active Not Available Not Available Not [...] Not Available Not Available Not Available cyanocoba delores (vit B-12) 1,000 mcg sublingua l tablet [...] Not Available Not Available Not Available Vitals None Recorded Social History Question Answer Notes LastModified by Organizat ion Details LastModified Time Tobacco Smoking Status Former Smoker Frances Wilson RN null, [place] [facility] [employer] 02/19/2025 09:24:50 What Is Your Level Of Caffeine Consumption? Occasional 3 Glasses Of Tea Per Day [email or web address] Information not available 02/19/2025 Which Illicit Or Recreational Drugs Have You Used? Smoke CBD [email or web address] Information not available 02/19/2025 When Did You Quit Smoking? 16+yearssincel astcigarette Quit At Age 27 Information not available 02/19/2025 How Many Years Have You Used Illicit Or Recreational Drugs? 2 [email or web address] Information not available 02/19/2025 What Is Your Current Pack Years? 10-19packyears [email or web address] Information not available 02/19/2025 At What Age Did You Start Smoking Tobacco? 17 Information not available 02/19/2025 How Much Tobacco Do You Smoke? 0.25 PPD [email or web address] Information not available 02/19/2025 How Many Years Have You Smoked Tobacco? 10 [email or web address] Information not available 02/19/2025 Have You Used IV Drugs? No Information not available 02/19/2025 Sex: Unknown Functional Status Question Answer Note LastModified by Organizat ion Details LastModified Time Do you use any illicit or recreational drugs? Yes [email or web address] Information not available 02/19/2025 Do you or have you ever used any other forms of tobacco or nicotine? No [email or web address] Information not available 02/19/2025 What is your level of alcohol consumption? None Information not available 02/19/2025 Mental Status None recorded. Family History Relationship Description Onset Age of this Age Resolved Age Notes LastModified by Organization Details LastModified Time Mother Essential hypertension 40 69 8 aunts also have high BP Not available 02/19/2025 09:16:47 Mother Congestive heart failure 69 Not available 02/19 09:17:17 Mother Diabetes mellitus 69 [email or web address] Not available 02/19 09:17:42 Mother Cardiomegaly 69 Not kirstin ilable 02/19/2025 09:18:10 Mother Dialysis finding 69 69 [email or web address] Not available 02/19 09:22:22 Paternal Uncle Malignant neoplasm of colon 67 71 [email or web address] Not available 02/19 09:18:51 Father Depressive disorder 30 Not available 02/19 09:20:28 Brother Depressive disorder 58 64 Half Siblin g shared same Mom [email or web address] Not available 02/19/2025 09:20:28 Paternal Grandmother Anemia 102 [email or web address] Not available 09:21:16 Notes:NO ENT Medical History No medical history recorded. Gynecological HistoryNo gynecological history recorded. Obstetrics History GPAL:G 0 P 0 0 0 0 Past Encounters Encounter ID Performer Location Encounter Start Date Encounter Closed Date Diagnosis/Indication Diagnosis SNOMED-CT Code Diagnosis ICD10 Code Diagnosis IMO Codes Diagnosis Note [id number] CONNOR Christianson [facility] [address] [address] 06/06/2025 11:47:08 06/06/2025 16:21:33 Health Concerns Section Related Observation LastModified by Organization Detai ls LastModified Time None Recorded Concern Status LastModified by Organization Details LastModified Time None Recorded Payers Encounter Date Sequence Insurance Name Policy Number Policy Millard Covered Member ID Millard Member ID Guarantor Name 06/06/2025 1 [place]IC[place] Gerri Moreno [id number] 2 Gerri Moreno OBGyn Episode No OBEpisode recorded.
--- OUTSIDE RECORDS SUMMARY | 2025-07-11 17:48 | XMS_ITS | Clinical Summary ---
Author Organization [facility] Address [address], [facility] [address] [place] [address] Phone Care Team Providers Care Motorcycle Racer Name Role Phone Roxane Ross MD Primary Care Provider Theodore Lim DO Unavailable [phone] Allergies Active Allergy Reactions Criticality Noted Date Comments Amoxicillin Rash 07/10/2016 Medications FLUoxetine (PROZAC) 40 MG Capsule Take 40 mg by mouth daily. Active clonazePAM (KLONOPIN) 0.5 MG Tablet Take 0.5 mg by mouth 2 times daily. Active lisinopril-hydro CHLOROthiazide (PRINZIDE, ZESTORETIC) 20-25 MG Tablet Take 1 Tab by mouth daily. Active omeprazole (PRILOSEC) 20 MG CAPSULE DELAYED RELEASE Take 1 Cap by mouth daily. 30 Cap 3 11/04/2016 Active Family History Medical History Relation Name Comments Mental Disorder, Other Father Diabetes Mother Hypertension Mother Colon Cancer Paternal Uncle Relation Name Status Comments Father Mother Paternal Uncle Social History Tobacco Use Types Packs/Day Years Used Date Smoking Tobacco: Former Cigarettes 1 5 0 10/26/2004 - 10/26/2009 Smokeless Tobacco: Never Comments:socially a few here and there Alcohol Use Standard Drinks/Week Comments Yes 0 (1 standard drink = 0.6 oz pur e alcohol) 3 x week Comments Unknown Sex and Gender Information Value Date Recorded Sex Assigned at Not on file Legal Sex Female 10:46 PM CDT Gender Identity Not on file Sexual Orientation Not on file 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 Not on file Not on file Not on file Last Filed Vital Signs Vital Sign Reading Time Taken Comments Blood Pressure 139/86 10/28/2016 10:29 AM CDT Pulse 73 10/28/2016 7:59 AM CDT Temperature 36 C (96.8 F) 10/28/2016 10:29 AM CDT Respiratory Rate 16 10/28/2016 10:29 AM CDT Oxygen Saturation 100% 10/28/2016 10:29 AM CDT Inhaled Oxygen Concentration - - Weight 72.6 kg (160 lb) 10/26/2016 11:00 AM CDT Height 162.6 cm (5' 4) 10/26/2016 11:00 AM CDT Body Mass Index 27.46 10/26/2016 11:00 AM CDT Plan of Treatment Health Maintenance Due Date Last Done Comments Hepatitis C Virus (HCV) Screening 1955 TdaP Immunization 1955 Cologuard 1999 Immunochemical Fecal Occult Blood 1999 Pneumococcal Immunization (5 0+ years) (1 of 1 - PCV) 2004 Zoster Immunization (1 of 2) 2004 Influenza Immunization (#1) 2025 SARS-COV-2 Immunization ( season) 2025 Colonoscopy 07/09/2026 07/09/2016 Colorectal Cancer Screening 07/09/2026 Respiratory Syncytial Virus (RSV) Immunization (Adult) (1 - 1-dose 75+ series) 2029 Hepatitis B Immunization Aged Out No longer eligible based on patient's age to complete this topic Human Papillomavirus (HPV) Immunization Aged Out No longer eligible b ased on patient's age to complete this topic Meningococcal Immunization (ACWY) Aged Out No longer eligible based on patient's age to complete this topic Rotavirus Immunization Aged Out No lo nger eligible based on patient's age to complete this topic Procedures Procedure Name Priority Date/Time Associated Diagnosis Comments COLONOSCOPY Routine 07/09/2016 from Last 3 Months or Most Recently Relevant to Health Maintenance Results * COLONOSCOPY (07/09/2016) Roxane Ross MD PROCEDURE/MINOR SURGICA L ORDERABLES Final Result from Last 3 Months or Most Recently Relevant to Health Maintenance Insurance MEDICAID [facility] Care Teams Motorcycle Racer Relationship Specialty [place] [address] [place] [id number] PCP - General Internal Medicine 07/09/16 Theodore Lim DO [address] [place] [id number] Consulting Physician Gastroenterology 07/09/16
--- OUTSIDE RECORDS SUMMARY | 2025-07-11 17:48 | XMS_ITS | Data Portability ---
Author Organization [facility], Main Office Address [address] [place] [address] [address] Team Prov[address] Care Road Supervisor Name Role Phone EN MCKNIGHT Primary Care Provider Assessment Encounter Date Assessment Date Assessment LastModified by Organization Details LastModified Time 04/02/2025 04/02/2025 69 yo F with - WELL ADULT VISIT - DEPRESSION - ANXIETY, chronic - PALPITATIONS, intermittent - HTN - UNEXPLAINED WT LOSS - EX-SMOKER (Quitted since age 27yrs) - H/O ALCOHOL DEPENDENCE D/w pt about her findings, recent labs & imagines and further plan of care. Will do routine labs, cxr. All meds verified with pt. Meds as directed. Diet and exercise explained. Fall risk precautions explained. Cont f/u with Counsellor at [facility] as per schedule. Cont f/u with Cardio [...] declined. Risks explained. EGD & Colonoscopy - Pt will be getting it on 04/11/25. Flu - Pt declined. Tdap - Pt declined. Pneumo - Pt declined. Shingrix, RSV - At pharmacy/HD. F/u in 3 weeks. Annual labs in 04/20. [email or web address] Not available 04/02/2025 10:51:27 05/02/2025 05/02/2025 69 yo F with - [...] precautions explained. Cont f/u with Counsellor at [facility] as per schedule. Cont f/u with Cardio [...] US in 08/20. Annual labs in 04/20. Not available 05/02/2025 16:16:25 Plan of Treatment Reminders Order Date Submit Date Provider Last Modified By Organization Details Last Modified Time Details Appointments Any 15 2025 01:00P Kody Mcknight MD Not available Not available Not available Lab TSH, serum or plasma 2024 025 [email or web address] [facility] (Lab), [address] [place], [address], 06/06/2025 12:40:59 CBC w/ auto diff 2024 025 [facility] (Lab), [address] [place], [address], 04/02/2025 18:56:04 CMP, serum or plasma 2024 025 [facility] (Lab), [address] [place], [address], 04/02/2025 19:35:44 urinalysi s complete, reflex culture [address] (Lab), [address] [place], [address], 04/10/2025 13:56:41 vitamin B12 + folate, serum or blood [address] (Lab), [address] [place], [address], 04/10/2025 13:56:41 iron + TIBC + ferritin, serum [address] (Lab), [address] [place], [address], 04/10/2025 13:56:41 magnesium , blood [address] (Lab), [address] [place], [address], 04/10/2025 13:56:41 lipid panel, serum 2024 025 [facility] (Lab), [address] [place], [address], 04/02/2025 19:36:05 HbA1c (hemoglob in A1c), blood [address] (Lab), [address] [place], [address], 04/10/2025 13:56:42 TSH, serum or plasma 2024 025 [facility] (Lab), [address] [place], [address], 04/02/2025 21:01:41 Referral urologist referral - Please call patient to schedule an appointme nt. Thank you. 2024 025 [facility], [address], [place], [address], 05/09/2025 10:01:01 hematolog ist referral - Please call patient to schedule an appointme nt. Thank you. 2024 025 [facility] Charlie Fair MD, [address], [place], [address], 05/09/2025 09:55:17 Procedures fine needle aspiratio n, ultrasoun d guided, thyroid (PROC) 2024 [facility], [address], [address], [place], [address], 06/27/2025 12:45:24 upper endoscopy procedure (EGD) (PROC) 2024 025 [facility] (Pre-Screen), [address] [place], [address], 04/12/2025 08:08:11 colonosco py procedure (PROC) 2024 025 [facility] (Pre-Screen), [address] [place], [address], 04/12/2025 08:08:29 Surgeries None recorded. Imaging US, thyroid - Please call patient to schedule. [address] ([facility]), [address] [place], [address], 05/21/2025 10:48:54 XR, chest, 2 view [address] ([facility]), [address] [place], [address], 04/08/2025 08:29:07 Medication Orders ferrous sulfate 325 mg (65 mg iron) tablet,de layed release [email or web address] [facility] [place], [address], 06/27/2025 11:55:22 amlodipin e 10 mg tablet 2024 [facility], [address] [place], [address], 05/02/2025 16:12:35 lisinopri l 20 mg-hydroc hlorothia zide 12.5 mg tablet 2024 [facility], [address] [place], [address], 05/02/2025 16:12:35 buspirone 10 mg tablet 2024 [facility], [address] [place], [address], 05/02/2025 16:12:36 escitalop phuong 20 mg tablet 2024 [facility], [address] [place], [address], 05/02/2025 16:12:48 amlodipin e 10 mg tablet 2024 [facility], [address] [place], [address], 04/02/2025 10:38:52 lisinopri l 20 mg-hydroc hlorothia zide 12.5 mg tablet 2024 [facility], [address] [place], [address], 04/02/2025 10:38:50 ferrous sulfate 325 mg (65 mg iron) tablet,de layed release 2024 025 [email or web address] [facility], [address] [place], [address], 06/27/2025 11:55:22 buspirone 10 mg tablet 2024 025 [facility], [address] [place], [address], 04/02/2025 10:38:51 escitalop phuong 20 mg tablet 2024 025 [facility], [address] [place], [address], 04/02/2025 10:38:54 Golytely 236 gram-22.7 4 gram-6.74 gram-5.86 gram oral solution 2024 025 [facility], [address] [place], [address], 05/02/2025 16:13:26 Patient TargetsNo targets recorded. Patient Instructions Encounter Date Encounter Id Patient Instructions Last Modified By Organization Details Last Modified Time 03/21/2025 [id number] GOLYTEYL [email or web address] Not available 14:52:05 PT WITH UNINTENTIONAL WT LOSS. RECCOMMEND EGD /COLONOSCOPY . . Risks benefits and complications were explained to the pt. ( BLEEDING PERFORATION , INFECTION , ). PT VERBALIZES UNDERSTANDING AND IS WILLING TO PROCEDE . Not available 03/21/2025 14:52:40 06/27/2025 [id number] the thyroid need le aspiration biopsy with genetic testing is recommended. 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 Thank you. Referring Physician: En Mcknight [facility], Encounter Date: 05/02/2025 Urologist Referral for Micro scopic hematuria Please call patient to schedule an appointment. Thank you. Referring Physician: En Mcknight [facility], Encounter Date: 05/02/2025 Results Created Date Observation Date Name Description Value Unit Range Abnormal Flag Note LastModifiedBy Organization Detail LastModifiedTime 04/02/2004/02/2025 CBC/C OMPLE TE BLD COUNT W/DIF F white blood cells 5.7 x10'3 /uL 4.2-10 .8 Not Available [facility] (Lab) [address] [place], [address], 04/02/2025 18:56:04 04/02/2004/02/2025 CBC/C OMPLE TE BLD COUNT W/DIF F red blood cells 3.84 x10'6 /uL 4.10-5 .80 low Not Available [facility] (Lab) [address] [place], [address], 04/02/2025 18:56:04 04/02/2004/02/2025 CBC/C OMPLE TE BLD COUNT W/DIF F hemoglobin 9.4 g/dL 13.2-1 7.0 low Not Available [facility] (Lab) [address] [place], [address], 04/02/2025 18:56:04 04/02/2004/02/2025 CBC/C OMPLE TE BLD COUNT W/DIF F hematocrit 30.5 % 39.3-5 0.0 low Not Available [facility] (Lab) [address] [place], [address], 04/02/2025 18:56:04 04/02/20 25 04/02/2025 CBC/C OMPLE TE BLD COUNT W/DIF F mean red cell volume 79.4 fL 80.0-9 7.0 low Not Available [facility] (Lab) [address] [place], [address], 04/02/2025 18:56:04 04/02/20 25 04/02/2025 CBC/C OMPLE TE BLD COUNT W/DIF F mean red cell hemoglobin 24.5 pg 27.0-3 3.0 low Not Available [facility] (Lab) [address] [place], [address], 04/02/2025 18:56:04 04/02/20 25 04/02/2025 CBC/C OMPLE TE BLD COUNT W/DIF F mean RBC HGB concentratio n 30.8 g/dL 31.0-3 6.0 low Not Available [facility] (Lab) [address] [place], [address], 04/02/2025 18:56:04 04/02/2004/02/2025 CBC/C OMPLE TE BLD COUNT W/DIF F red cell distribution width 14.4 % 11.8-1 5.5 Not Available [facility] (Lab) [address] [place], [address], 04/02/2025 18:56:04 04/02/20 25 04/02/2025 CBC/C OMPLE TE BLD COUNT W/DIF F platelets 381 x10'3 /uL 150-40 0 Not Available [facility] (Lab) [address] [place], [address], 04/02/2025 18:56:04 04/02/20 25 04/02/2025 CBC/C OMPLE TE BLD COUNT W/DIF F mean platelet volume 10.3 fL 9.0-12 .4 Not Available [facility] (Lab) [address] [place], [address], 04/02/2025 18:56:04 04/02/20 25 04/02/2025 CBC/C OMPLE TE BLD COUNT W/DIF F neutrophils 60.8 % 39.0-7 2.0 Not Available [facility] (Lab) [address] [place], [address], 04/02/2025 18:56:04 04/02/20 25 04/02/2025 CBC/C OMPLE TE BLD COUNT W/DIF F lymphocytes 33.2 % 16.0-4 7.0 Not Available [facility] (Lab) [address] [place], [address], 04/02/2025 18:56:04 04/02/2004/02/2025 CBC/C OMPLE TE BLD COUNT W/DIF F monocytes 4.9 % 5.0-12 .0 low Not Available [facility] (Lab) [address] [place], [address], 04/02/2025 18:56:04 04/02/2004/02/2025 CBC/C OMPLE TE BLD COUNT W/DIF F eosinophils 0.2 % 1.0-7. 0 low Not Available [facility] (Lab) [address] [place], [address], 04/02/2025 18:56:04 04/02/2004/02/2025 CBC/C OMPLE TE BLD COUNT W/DIF F basophils 0.5 % 0.0-2. 0 Not Available [facility] (Lab) [address] [place], [address], 04/02/2025 18:56:04 04/02/2004/02/2025 CBC/C OMPLE TE BLD COUNT W/DIF F immature granulocytes 0.4 % 0.00-0 .50 Not Available [facility] (Lab) [address] [place], [address], 04/02/2025 18:56:04 04/02/2004/02/2025 CBC/C OMPLE TE BLD COUNT W/DIF F neutrophils, absolute count 3.47 x10'3 /uL 1.5-8. 0 Not Available [facility] (Lab) [address] [place], [address], 04/02/2025 18:56:04 04/02/2004/02/2025 CBC/C OMPLE TE BLD COUNT W/DIF F lymphocytes, absolute count 1.89 x10'3 /uL 1.07-3 .43 Not Available [facility] (Lab) [address] [place], [address], 04/02/2025 18:56:04 04/02/2004/02/2025 CBC/C OMPLE TE BLD COUNT W/DIF F monocytes, absolute count 0.28 x10'3 /uL 0.29-0 .99 low Not Available [facility] (Lab) [address] [place], [address], 04/02/2025 18:56:04 04/02/2004/02/2025 CBC/C OMPLE TE BLD COUNT W/DIF F eosinophils, absolute count 0.01 x10'3 /uL 0.02-0 .53 low Not Available [facility] (Lab) [address] [place], [address], 04/02/2025 18:56:04 04/02/2004/02/2025 CBC/C OMPLE TE BLD COUNT W/DIF F basophils, absolute count 0.03 x10'3 /uL 0.01-0 .08 Not Available [facility] (Lab) [address] [place], [address], 04/02/2025 18:56:04 04/02/2004/02/2025 CBC/C OMPLE TE BLD COUNT W/DIF F immature granulocytes ,absolute 0.02 x10'3 /uL 0.00-0 .05 Not Available [facility] (Lab) [address] [place], [address], 04/02/2025 18:56:04 04/02/2004/02/2025 CBC/C OMPLE TE BLD COUNT W/DIF F nucleated red blood cells 0.0 % -0 Not Available [facility] (Lab) [address] [place], [address], 04/02/2025 18:56:04 04/02/2004/02/2025 CBC/C OMPLE TE BLD COUNT W/DIF F NRBC# 0.00 x10'3 /uL Not Available [facility] (Lab) [address] [place], [address], 04/02/2025 18:56:04 04/02/2004/02/2025 URINA LYSIS COMPL ETE/I RIS W/RFX color DARK-Y ELLOW Not Available [facility] (Lab) [address] [place], [address], 04/02/2025 19:04:40 04/02/2004/02/2025 URINA LYSIS COMPL ETE/I RIS W/RFX appear EXTRA TURBID abnormal Not Available [facility] (Lab) [address] [place], [address], 04/02/2025 19:04:40 04/02/2004/02/2025 URINA LYSIS COMPL ETE/I RIS W/RFX specific gravity 1.023 1.001- 1.030 Not Available [facility] (Lab) [address] [place], [address], 04/02/2025 19:04:40 04/02/2004/02/2025 URINA LYSIS COMPL ETE/I RIS W/RFX pH 6.5 pH_un its 5.0-9. 0 Not Available [facility] (Lab) [address] [place], [address], 04/02/2025 19:04:40 04/02/20 25 04/02/2025 URINA LYSIS COMPL ETE/I RIS W/RFX leukocytes NEGATI VE shruthi/u L negati ve- Not Available [facility] (Lab) [address] [place], [address], 04/02/2025 19:04:40 04/02/20 25 04/02/2025 URINA LYSIS COMPL ETE/I RIS W/RFX nitrite NEGATI VE negati ve- Not Available [facility] (Lab) [address] [place], [address], 04/02/2025 19:04:40 04/02/20 25 04/02/2025 URINA LYSIS COMPL ETE/I RIS W/RFX protein 20 mg/dL negati ve- abnormal Not Available [facility] (Lab) [address] [place], [address], 04/02/2025 19:04:40 04/02/20 25 04/02/2025 URINA LYSIS COMPL ETE/I RIS W/RFX glucose NORMAL mg/dL normal - Not Available [facility] (Lab) [address] [place], [address], 04/02/2025 19:04:40 04/02/20 25 04/02/2025 URINA LYSIS COMPL ETE/I RIS W/RFX ketones NEGATI VE mg/dL negati ve- Not Available [facility] (Lab) [address] [place], [address], 04/02/2025 19:04:40 04/02/20 25 04/02/2025 URINA LYSIS COMPL ETE/I RIS W/RFX urobilinogen 2 mg/dL normal - abnormal Not Available [facility] (Lab) [address] [place], [address], 04/02/2025 19:04:40 04/02/20 25 04/02/2025 URINA LYSIS COMPL ETE/I RIS W/RFX bilirubin NEGATI VE mg/dL negati ve- Not Available [facility] (Lab) [address] [place], [address], 04/02/2025 19:04:40 04/02/20 25 04/02/2025 URINA LYSIS COMPL ETE/I RIS W/RFX blood NEGATI VE mg/dL negati ve- Not Available [facility] (Lab) [address] [place], [address], 04/02/2025 19:04:40 04/02/20 25 04/02/2025 URINA LYSIS COMPL ETE/I RIS W/RFX white blood cells NONE /i??h pfi?? 0-8 Not Available [facility] (Lab) [address] [place], [address], 04/02/2025 19:04:40 04/02/20 25 04/02/2025 URINA LYSIS COMPL ETE/I RIS W/RFX red blood cells 11-20 /i??h pfi?? 0-4 abnormal Not Available [facility] (Lab) [address] [place], [address], 04/02/2025 19:04:40 04/02/20 25 04/02/2025 URINA LYSIS COMPL ETE/I RIS W/RFX bacteria NONE none seen- Not Available [facility] (Lab) [address] [place], [address], 04/02/2025 19:04:40 04/02/20 25 04/02/2025 URINA LYSIS COMPL ETE/I RIS W/RFX mucous MANY /i??l pfi?? none seen- abnormal Not Available [facility] (Lab) [address] [place], [address], 04/02/2025 19:04:40 04/02/20 25 04/02/2025 URINA LYSIS COMPL ETE/I RIS W/RFX squamous epithelial PACKED FIELD /i??l pfi?? abnormal Not Available [facility] (Lab) [address] [place], [address], 04/02/2025 19:04:40 04/02/20 25 04/02/2025 URINA LYSIS COMPL ETE/I RIS W/RFX calcium oxalate crystal OCCASI ONAL /i??h pfi?? none seen- abnormal Not Available [facility] (Lab) [address] [place], [address], 04/02/2025 19:04:40 04/02/20 25 04/02/2025 COMPR EHENS ROSANA METAB OLIC PANEL sodium 137 mmol/ L 137-14 5 Not Available [facility] (Lab) [address] [place], [address], 04/02/2025 19:35:43 04/02/20 25 04/02/2025 COMPR EHENS ROSANA METAB OLIC PANEL potassium 4.1 mmol/ L 3.5-5. 1 Not Available [facility] (Lab) [address] [place], [address], 04/02/2025 19:35:43 04/02/20 25 04/02/2025 COMPR EHENS ROSANA METAB OLIC PANEL chloride 106 mmol/ L 98-107 Not Available [facility] (Lab) [address] [place], [address], 04/02/2025 19:35:43 04/02/20 25 04/02/2025 COMPR EHENS ROSANA METAB OLIC PANEL carbon dioxide 28 mmol/ L 22-30 Not Available [facility] (Lab) [address] [place], [address], 04/02/2025 19:35:43 04/02/20 25 04/02/2025 COMPR EHENS ROSANA METAB OLIC PANEL anion gap 7.1 mmol/ L 14-22 low Not Available [facility] (Lab) [address] [place], [address], 04/02/2025 19:35:43 04/02/20 25 04/02/2025 COMPR EHENS ROSANA METAB OLIC PANEL glucose 109 mg/dL 70-99 high Not Available [facility] (Lab) [address] [facility] [place], [address], 04/02/2025 19:35:43 04/02/2004/02/2025 COMPR EHENS ROSANA METAB OLIC PANEL BUN 9 mg/dL 8-19 Not Available [facility] (Lab) [address] [place], [address], 04/02/2025 19:35:43 04/02/2004/02/2025 COMPR EHENS ROSANA METAB OLIC PANEL creatinine 0.57 mg/dL 0.66-1 .25 low Not Available [facility] (Lab) [address] [facility], [address], 04/02/2025 19:35:43 04/02/2004/02/2025 COMPR EHENS ROSANA METAB OLIC PANEL GFR >60 Refer ence Range : [place] ge GFR Healt hy Adult : >60 [...] or ethni c subgr oups, such as [facility] nics. Outsi de the valid ated sailaja [...] calcu lator is avail able on the NKF websi te: https ://elvia fernández.oneal ng.o rg/pr ofess ional s/kdo qi/gf r_cal culat or Not Available [facility] (Lab) [address] [place], [address], 04/02/2025 19:35:43 04/02/20 25 04/02/2025 COMPR EHENS ROSANA METAB OLIC PANEL alkaline phosphatase 52 U/L 38-126 Not Available [facility] (Lab) [address] [place], [address], 04/02/2025 19:35:43 04/02/20 25 04/02/2025 COMPR EHENS ROSANA METAB OLIC PANEL alanine aminotransfe rase 13 U/L 0-35 Not Available [facility] (Lab) [address] [place], [address], 04/02/2025 19:35:43 04/02/20 25 04/02/2025 COMPR EHENS ROSANA METAB OLIC PANEL aspartate aminotransfe rase 22 U/L 15-37 Not Available [facility] (Lab) [address] [place], [address], 04/02/2025 19:35:43 04/02/20 25 04/02/2025 COMPR EHENS ROSANA METAB OLIC PANEL bilirubin, total 0.40 mg/dL 0.20-1 .30 Not Available [facility] (Lab) [address] [place], [address], 04/02/2025 19:35:43 04/02/20 25 04/02/2025 COMPR EHENS ROSANA METAB OLIC PANEL calcium 9.1 mg/dL 8.4-10 .2 Not Available [facility] (Lab) [address] [place], [address], 04/02/2025 19:35:43 04/02/20 25 04/02/2025 COMPR EHENS ROSANA METAB OLIC PANEL total protein 6.4 g/dL 6.3-8. 2 Not Available [facility] (Lab) [address] [place], [address], 04/02/2025 19:35:43 04/02/2004/02/2025 COMPR EHENS ROSANA METAB OLIC PANEL albumin 4.2 g/dL 3.0-4. 4 Not Available [facility] (Lab) [address] [place], [address], 04/02/2025 19:35:43 04/02/2004/02/2025 COMPR EHENS ROSANA METAB OLIC PANEL globulin 2.2 g/dL 2.6-4. 2 low Not Available [facility] (Lab) [address] [place], [address], 04/02/2025 19:35:43 04/02/2004/02/2025 COMPR EHENS ROSANA METAB OLIC PANEL A/G ratio 1.9 ratio 1.0-2. 0 Not Available [facility] (Lab) [address] [place], [address], 04/02/2025 19:35:43 04/02/2004/02/2025 MAGNE SIUM magnesium 1.8 mg/dL 1.6-2. 3 Not Available [facility] (Lab) [address] [place], [address], 04/02/2025 19:35:53 04/02/2004/02/2025 LIPID PANEL cholesterol 200 mg/dL 140-19 9 high NIH DEREJE NSUS RECOM MENDA TION FOR MERE STERO L: ADULT CHILD LOW RISK: <200 <170 BORDE RLINE : <200- 239 ----- HIGH RISK: >240 >200 Not Available [facility] (Lab) [address] [place], [address], 04/02/2025 19:40:58 04/02/2004/02/2025 LIPID PANEL triglyceride s 65 mg/dL 0-150 NIH DEREJE NSUS REPOR T RECOM MENDA TION FOR TRIGL YCERI DAMARIS: ADULT CHILD LOW RISK: <150 ----- BODER LINE: 150-1 99 ----- HIGH RISK: >200 ----- Not Available [facility] (Lab) [address] [place], [address], 04/02/2025 19:40:58 04/02/20 25 04/02/2025 LIPID PANEL HDL cholesterol 111 mg/dL 40- Not Available [facility] (Lab) [address] [place], [address], 04/02/2025 19:40:58 04/02/2004/02/2025 LIPID PANEL LDL cholesterol, [...] WILL NOT BE REPOR KENNY. Not Available [facility] (Lab) [address] [place], [address], 04/02/2025 19:40:58 04/02/20 25 04/02/2025 IRON/ TIBC PANEL total iron binding capacity 400 mcg/d L 265-47 5 Not Available [facility] (Lab) [address] [place], [address], 04/02/2025 19:47:35 04/02/20 25 04/02/2025 IRON/ TIBC PANEL % transferrin saturation 10 % 20-55 low Not Available [facility] (Lab) [address] [place], [address], 04/02/2025 19:47:35 04/02/20 25 04/02/2025 IRON/ TIBC PANEL unsaturated iron bind capacity 359 mcg/d L 126-38 2 Not Available [facility] (Lab) [address] [place], [address], 04/02/2025 19:47:35 04/02/2004/02/2025 IRON/ TIBC PANEL iron 41 mcg/d L 42-175 low Not Available [facility] (Lab) [address] [place], [address], 04/02/2025 19:47:35 04/02/2004/02/2025 HEMOG LOBIN A1C HA1C 5.5 % 4.0-6. 0 Diabe pasha Scree cj Crite zoila: <5.7% Consi stent with absen ce of diabe pasha 5.7-6 .4% Consi stent with incre ased risk for diabe pasha (pred iabet es) >OR=6 .5% Consi stent with diabe pasha REFER ENCE: Diabe pasha Care 2016, 39(Olson ppl.1 ):s13 -s22 Not Available [facility] (Lab) [address] [place], [address], 04/02/2025 19:44:06 04/02/2004/02/2025 VITAM IN B12 ([place] LIGIA ) vb12 394 pg/mL 239-93 1 Not Available [facility] (Lab) [address] [place], [address], 04/02/2025 20:57:03 04/02/20 25 04/02/2025 FOLAT E, SERUM /PLAS MA folate 7.49 NG/mL 2.76-2 0.0 Not Available [facility] (Lab) [address] [place], [address], 04/02/2025 20:57:07 04/02/20 25 04/02/2025 TSH W/REF DEMETRICE FT4 TSH with reflex free T4 0.185 uIU/m L 0.465- 4.680 low Not Available [facility] (Lab) [address] [place], [address], 04/02/2025 21:01:41 04/02/20 25 04/02/2025 JOSE RAMON TIN ferritin 15 NG/mL 11.1-2 64 Not Available [facility] (Lab) [address] [place], [address], 04/02/2025 21:01:46 04/02/20 25 04/02/2025 T4 FREE free T4 0.96 NG/dL 0.78-2 .19 Not Available [facility] (Lab) [address] [place], [address], 04/02/2025 21:38:03 06/06/20 25 06/06/2025 TSH W/REF DEMETRICE FT4 TSH with reflex free T4 0.107 uIU/m L 0.465- 4.680 low Not Available [facility] (Lab) [address] [place], [address], 06/06/2025 21:31:58 06/06/20 25 06/06/2025 T4 FREE free T4 1.06 NG/dL 0.78-2 .19 Not Available [facility] (Lab) [address] [place], [address], 06/06/2025 22:07:43 04/05/20 25 04/05/2025 XR, chest , 2 view No observ ation record ed. [facility] [address], [place], [address], 05/02/2025 16:07:52 05/17/20 25 05/17/2025 US, thyro id No observ ation record ed. [email or web address] [facility] [address], [place], [address], 05/21/2025 11:21:45 Result Notes None recorded. Problems Name Problem SNOMED Code Status Onset Date Resolution Date Notes Provider Name and Address Organization Details Recorded Time Hypertensive disorder 06657449 Active Not Available [facility] 3 11:45:44 Diverticulosi s of colon without diverticuliti s 532668629 Active Not Available [facility] 3 11:45:44 Urinary tract infectious disease 86923193 Active Not Available [facility] 3 11:45:44 Anxiety 48500136 Active 2017 Not Available [facility] 3 11:45:44 Mixed anxiety and depressive disorder 565999391 Active 2022 Not Available [facility] 3 11:45:44 Essential hypertension 35858338 Active 2022 Not Available [facility] 3 11:45:44 Hyperlipidemi a 87472209 Active 2022 Yoanna Saxena MD [address], [place], [address] , [facility] 3 10:32:15 Depressive disorder 63955513 Active 2023 En Mcknight MD [address], [place], [address] , [facility] 5 16:17:30 Thyroid stimulating hormone level below reference range 200530554 Active 2023 AI Grier [address], [place], [address] , [facility] 4 12:13:24 Anemia 951648766 Active 2023 AI Grier [address], [address], [place], [address] , [facility] 4 12:13:33 Serum vitamin B12 below reference range 823866986 Active 2023 AI Grier [address], [place], [address] , [facility] [facility] 4 10:45:45 Abnormal weight 49345079 Active 2024 Frances Wilson RN [facility], [place] - [facility] 5 09:11:42 Benign hypertension 82537012 Active 2024 En Mcknight MD [address], [place], [address] , [facility] 5 09:26:32 Chronic anemia 187842067 Active 2024 En Mcknight MD [address], [place], [address] , [facility] 5 09:26:39 Loss of appetite 92002995 Active 2024 En Mcknight MD [address], [place], [address] , [facility] 5 09:27:05 Intermittent palpitations 450243628 Active 2024 En Mcknight MD [address], [place], [address] , [facility] 5 09:34:15 Unintentional weight loss 018508315 Active 2024 Angela Mays MD [address], [place], [address] , [facility] 5 14:51:26 History of alcohol abuse 705920030 Active 2024 En Mcknight MD [address], [place], [address] , [facility] 5 16:17:30 Chronic anxiety 794138488 Active 2024 En Mcknight MD [address], [place], [address] , [facility] 5 10:37:42 Ex-cigarette smoker 196794506 Active 2024 En Mcknight MD [address], [place], [address] , [facility] 5 10:50:21 Nodule of lung 557193966 Active 2024 En Mcknight MD [address] [facility], [place], [address] , [facility] [employer] [facility] [employer] [facility] 14:03:31 Microscopic hematuria 277847096 Active 2024 En Mcknight MD [address] [facility], [address], [place], [address] , [facility] [employer] [facility] [employer] [facility] 16:01:11 Subclinical hyperthyroidi sm 492032779 Active 2024 En Mcknight MD [address] [facility], [place], [address] , [facility] [employer] [facility] [employer] 16:01:27 Multinodular goiter 977837585 Active 2024 Jose Amor MD [address] [facility] [address], [place], [address] , [facility] [employer] [facility] [employer] 12:20:41 Thyroid nodule 868107273 Active 2024 Allyson Tinoco RN [facility], [facility] [employer] [facility] 12:17:36 Problem Notes None recorded. Procedures Surgical History Date Name Laterality Status Provider Name and Address Organization Details Recorded Time 03/09/20 24 Medicare Wellness CPT Code, subsequent completed October DONATO Tovar [facility] [employer] [facility] 02/03/2024 15:49:13 01/12/20 23 Medicare Wellness CPT Code, Initial completed Abimbola Manzo RN [facility] [employer] [facility] 01/08/2023 14:15:52 03/10/20 10 Cholecystectomy completed Frances Wilson RN [facility] [employer] [facility] 02/19/2025 09:27:16 12/30/18 99 hysterectomy completed Frances Wilson RN [facility] [employer] [facility] 02/19/2025 09:25:28 10/31/18 85 extraction of wisdom tooth completed Frances Wilson RN [facility] [employer] [facility] 02/19/2025 09:26:46 Imaging Results None recorded. Procedure Notes None recorded. Medical Equipment None Reported. Allergies Allergen ID Allergen Name Allergen Category Reaction Reaction Severity Criticality Documentation Date Start Date Code Code System Note Provider Name and Address Organization Details Recorded Time ibuprofen medicatio n Not available Not available Not available 09/23/2022 5640 RxNorm Not Available [facility] 3 08:14:04 amoxicill in medicatio n Not available Not available Not available 09/23/2022 723 RxNorm Not Available [facility] 3 08:14:04 Medications Name Sig Start Date [...] height Body mass index (BMI) Body weight Heart rate Oxygen saturation Systolic And Diastolic Provider Name and Address Organization Details Last Updated DateTime 162.56 cm 20.4 kg/m2 99030.4 9 g 81 /min 97 % 122/78 mm[Hg] NEELAM Hooper [facility] [employer] [facility] 14:28:33 Date Recorded Body height Body mass index (BMI) Body weight Body temperature Oxygen saturation Heart rate Systolic And Diastolic Provider Name and Address Organization Details Last Updated DateTime 162.56 cm 20.5 kg/m2 51932.2 9 g 97.3 [degF] 96 % 72 /min 140/68 mm[Hg] Frances Wilson RN [facility] [employer] [facility] 5 10:32:41 Date Recorded Body height Body mass index (BMI) Body weight Body temperature Oxygen saturation Heart rate Systolic And Diastolic Provider Name and Address Organization Details Last Updated DateTime 162.56 cm 19.8 kg/m2 23619.8 7 g 97.3 [degF] 97 % 76 /min 130/64 mm[Hg] Frances Wilson RN [facility] [employer] [facility] 16:05:59 Date Recorded Body height Body mass index (BMI) Body weight Body temperature Provider Name and Address Organization Details Last Updated DateTime 06/27/2025 162.56 cm 20.6 kg/m2 24344.08 g 97.8 [degF] Allyson Tinoco RN [facility] [employer] [facility] 06/27/2025 11:59:28 Social History Question Answer Notes LastModified by [employer] Details LastModified Time Tobacco Smoking Status Former Smoker Frances Wilson RN [facility], [facility] [employer] [facility] 02/19/2025 09:24:50 What Is Your Level Of Caffeine Consumption? Occasional 3 Glasses Of Tea Per Day [email or web address] Information not available 02/19/2025 Which Illicit Or Recreational Drugs Have You Used? Smoke CBD [email or web address] Information not available 02/19/2025 When Did You Quit Smoking? 16+yearssincel eric Quit At Age 27 [email or web address] Information not available 02/19/2025 How Many Years Have You Used Illicit Or Recreational Drugs? 2 [email or web address] Information not available 02/19/2025 What Is Your Current Pack Years? 10-19packyears [email or web address] Information not available 02/19/2025 At What Age Did You Start Smoking Tobacco? 17 [email or web address] Information not available 02/19/2025 How Much Tobacco Do You Smoke? 0.25 PPD [email or web address] Information not available 02/19/2025 How Many Years Have You Smoked Tobacco? 10 [email or web address] Information not available 02/19/2025 Have You Used IV Drugs? No [email or web address] Information not available 02/19/2025 Sex: Unknown Functional Status Question Answer Note LastModified by [employer] Details LastModified Time Do you use any illicit or recreational drugs? Yes Information not available 02/19/2025 Do you or have you ever used any other forms of tobacco or nicotine? No [email or web address] Information not available 02/19/2025 What is your level of alcohol consumption? None [email or web address] Information not available 02/19/2025 Mental Status None recorded. Family History Relationship Description Onset Age of this Age Resolved Age Notes LastModified by Organization Details LastModified Time Mother Essential hypertension 40 69 8 aunts also have high BP [email or web address] Not available 02/19/2025 09:16:47 Mother Congestive heart failure 69 [email or web address] Not available 02/19 09:17:17 Mother Diabetes mellitus 69 [email or web address] Not available 02/19 09:17:42 Mother Cardiomegaly 69 [email or web address] Not kirstin ilable 02/19/2025 09:18:10 Mother Dialysis finding 68 69 [email or web address] Not available 02/19 09:22:22 Paternal Uncle Malignant neoplasm of colon 67 71 [email or web address] Not available 02/19 09:18:51 Father Depressive disorder 30 [email or web address] Not available 02/19 09:20:28 Brother Depressive disorder 58 64 Half Siblin g shared same Mom [email or web address] Not available 02/19/2025 09:20:28 Paternal Grandmother Anemia 102 [email or web address] Not available 09:21:16 Notes:NO ENT Medical History No medical history recorded. Gynecological HistoryNo gynecological history recorded. Obstetrics History GPAL:G 0 P 0 0 0 0 Past Encounters Encounter ID Performer Location Encounter Start Date Encounter Closed Date Diagnosis/Indication Diagnosis SNOMED-CT Code Diagnosis ICD10 Code Diagnosis IMO Codes Diagnosis Note [id number] Yoanna Saxena MD [facility] [address] [place] [address] 05/14/2021 00:00:00 05/15/2021 05:53:54 [id number] Yoanna Saxena MD [facility] [place] [address] [place] [address] 01/11/2023 10:20:54 01/11/2023 10:46:43 Adult health examination 668966690 Z00.00 Screening for disorder 528437680 Z13.9 Essential hypertension 92635558 I10 Will increase amlodipine to 10 mg daily. F/u in 3 -4 weeks. Mixed anxi ety and depressive disorder 887097582 F41.8 Increase escitalopr am to 20 mg daily F/u in 3-4 weeks [id number] Yoanna Saxena MD [facility] [address] [place] [address] 02/08/2023 10:21:27 02/08/2023 10:35:31 Essential hypertension 77279324 I10 Continue current meds. Mixed anxi ety and depressive disorder 643550650 F41.8 Hyperlipidemia 61804304 E78.5 repeat BW in 04/17. Pt not wanting to start a statin now. Will see what BW shows. [id number] En Mcknight MD [facility] [address] [facility], [facility] [place] [address] 03/09/2024 09:40:49 03/09/2024 10:27:45 Adult health examination 909628696 Z00.00 Screening for disorder 599696475 Z13.9 Essential hypertension 14833154 I10 Depressive disorder 3548 9007 F32.A Hyperlipidemia 38382852 E78.5 Anxiety 14129321 F41.9 Diverticul osis of colon without diverticulitis 870288630 K57.30 Mixed anxi ety and depressive disorder 574046032 F41.8 [id number] En Mcknight MD [address] [address] 02/19/2025 08:58:57 02/19/2025 09:41:38 Benign hypertension 90659416 I10 866776 Chronic anemia 656916175 D64.9 518441 Depressive disorder 3548 9007 F32.A Loss of appetite 2299708 6 R63.0 32735 Intermitte nt palpitations 328848267 R00.2 39127964 [id number] Angela Mays MD [facility] General Surgery [address] [facility] [address] [place] [address] 03/21/2025 14:24:26 03/21/2025 14:47:25 Unintentional weight loss 387102700 R63.4 310342 [id number] En Mcknight MD [address] [address] 04/02/2025 10:21:47 04/02/2025 10:57:08 Depressive disorder 31505218 F32.A Benign hypertension 1072 5009 I10 989706 Chronic anemia 744205659 D64.9 393853 Loss of appetite 7140843 6 R63.0 60043 Intermitte nt palpitations 039846831 R00.2 28834947 History of alcohol abuse 586838873 F10.10 Chronic anxiety 10272274 9 F41.9 787394 Ex-cigarette smoker 2810 91409 Z87.891 [id number] Quitted since age 27yrs [id number] En Mcknight MD [address] [address] 05/02/2025 15:55:55 05/02/2025 16:25:12 Depressive disorder 75295766 F32.A Benign hypertension 1072 5009 I10 662178 Chronic anemia 498111754 D64.9 775774 Loss of appetite 8507869 6 R63.0 32174 Intermitte nt palpitations 470126197 R00.2 09105630 History of alcohol abuse 446388845 F10.10 Chronic anxiety 39549282 9 F41.9 977141 Ex-cigarette smoker 2810 61679 Z87.891 190715 Quitted since age 27yrs Microscopic hematuria 19 4480149 R31.29 699496 [facility] hyperthyroidism 358296109 E05.90 109533 Nodule of lung 047196924 R91.1 913493 [id number] CONNOR Christianson [address] [address] 06/06/2025 11:47:08 06/06/2025 16:21:33 [id number] Jose Amor MD [facility] ENT [place] [address] [place] [address] 06/27/2025 11:47:32 06/29/2025 09:59:38 Multinodular goiter 744996225 E04.2 49685 Health Concerns Section Related Observation LastModified by Organization Detai ls LastModified Time None Recorded Concern Status LastModified by Organization Details LastModified Time None Recorded Advance Directives Directive None Recorded Payers Insurance Date Sequence Insurance Name Policy Number Policy Millard Covered Member ID Millard Member ID Guarantor Name 06/25/2025 1 [place] Gerri Moreno [id number] Gerri Moreno 03/15/2025 [facility] Gerri Moreno [id number] Gerri Moreno Notes Date Note Type Note Provider Name and Address Organization Details Recorded Time 03/21/2025 text/html ROS as noted in the HPI GERRI WAS SEEN IN THE OFFICE TODAY FOR EVALUATION .OF WT LOSS , 30 LBS X 6 MTHS . PT OF 51 YRS WAS DX WITH PARKINSONS DZ AND DEMENTIA. PT BROTHER SUDDENLY IN DECEMBER. PT HAS DECREASED PO INTAKE . ADMITS TO STRESS. Angela Mays MD [address] [facility], [facility] [address], [place], [address], [employer] [facility] 03/21/2025 14:53:10 04/02/2025 text/html Pt is here for her annual exam. Feeling overall better. Denies any problem with meds. Denies any new concern. Pt is f/u with Cardio for her palpitations and will be getting more testing with them. Pt saw GI for her wt loss and will be going for both scopes on 04/11/25. C/o unexplained wt loss for last couple months. Pt denies any BM changes, no blood in stool. Doing better with her mood. Denies any mood swings/SI/HI. Pt's has bad Parkinson's and dementia and she is busy taking care of him. Pt has good help at home too. En Mcknight MD [address] [facility], [facility] [address], [place], [address], [facility] 04/02/2025 10:51:32 05/02/2025 text/html Pt is here for f/u [...] help at home too. En Mcknight MD [address] [facility], [address] [address], [place], [address], [facility] [employer] [facility] [employer] [facility] 05/02/2025 16:32:09 06/27/2025 text/html this patient had weight loss which was followed by a thyroid ultrasound. This revealed a 1.7 cm TI-RADS 5 nodule in the right and a 1.5 cm TI-RADS nodule on the left. Needle biopsy was recommended. Jose Amor MD [address] [facility] [facility] [address], [place], [address], [employer] 06/27/2025 12:21:30 OBGyn Episode No OBEpisode recorded.
--- OUTSIDE RECORDS SUMMARY | 2025-07-11 17:48 | XMS_ITS | Continuity of Care Document ---
Author Organization [facility] [employer], [facility] Rosalino Dillard Address [address] [place] [address] Care Team Providers Care Home Health Care Worker Name Role Phone EN MCKNIGHT Primary Care Provider Assessment No assessment recorded. Plan of Treatment Reminders Order Date Submit Date Provider Last Modified By Organization Details Last Modified Time Details Appointments Any 15 2025 01:00P Kody Mcknight MD Not available Not available Not available Lab None recorded. Referral None recorded. Procedures fine needle aspiratio n, ultrasoun d guided, thyroid (PROC) 2024 025 [facility], [address], [address], [address], 06/27/2025 12:45:24 Surgeries None recorded. Imaging None recorded. Medication Orders None recorded. Patient TargetsNo targets recorded. Patient Instructions Encounter Date Encounter Id Patient Instructions Last Modified By Organization Details Last Modified Time 06/27/2025 [id number] the thyroid needle aspiration biopsy with genetic testing is recommended. [email or web address] Not available 06/27/2025 12:21:03 Reason for Referral None Reported. Results Created Date Observation Date Name Description Value Unit Range Abnormal Flag Note LastModifiedBy Organization Detail LastModifiedTime 06/06/20 25 06/06/2025 TSH W/REF DEMETRICE FT4 TSH with reflex free T4 0.107 uIU/m L 0.465- 4.680 low Not Available [facility] (Lab) [address] [place], [address], 06/06/2025 21:31:58 06/06/20 25 06/06/2025 T4 FREE free T4 1.06 NG/dL 0.78-2 .19 Not Available [facility] (Lab) [address], [place], [address], 06/06/2025 22:07:43 Result Notes None recorded. Problems Name Problem SNOMED Code Status Onset Date Resolution Date Notes Provider Name and Address Organization Details Recorded Time Hypertensive disorder 88203702 Active Not Available [facility] 3 11:45:44 Diverticulosi s of colon without diverticuliti s 422141687 Active Not Available [facility] 3 11:45:44 Urinary tract infectious disease 94854122 Active Not Available [facility] 3 11:45:44 Anxiety 56109204 Active 2017 Not Available [facility] 3 11:45:44 Mixed anxiety and depressive disorder 570395737 Active 2022 Not Available [facility] 3 11:45:44 Essential hypertension 35223275 Active 2022 Not Available [facility] 3 11:45:44 Hyperlipidemi a 55923649 Active 2022 Yoanna Saxena MD [address], [place], [address] , [employer] [facility] [employer] 3 10:32:15 Depressive disorder 78812966 Active 2023 En Mcknight MD [address], [address], [place], [address] , [employer] [facility] [employer] 5 16:17:30 Thyroid stimulating hormone level below reference range 846315603 Active 2023 AI Grier [address], [address], [place], [address] , [employer] [facility] [employer] 4 12:13:24 Anemia 916631360 Active 2023 AI Grier [address], [place], [address] , [facility] [employer] 4 12:13:33 Serum vitamin B12 below reference range 756405505 Active 2023 AI Grier [address], [address], [place], [address] , [facility] 4 10:45:45 Abnormal weight 38717648 Active 2024 Frances Wilson RN null, [facility] 5 09:11:42 Benign hypertension 47179406 Active 2024 En Mcknight MD [address], [address], [place], [address] , [facility] [employer] 5 09:26:32 Chronic anemia 508298308 Active 2024 En Mcknight MD [address], [address], [place], [address] , [facility] [employer] 5 09:26:39 Loss of appetite 17448155 Active 2024 En Mcknight MD [address], [address], [place], [address] , [facility] [employer] 5 09:27:05 Intermittent palpitations 689529125 Active 2024 En Mcknight MD [address], [place], [address] , [facility] 5 09:34:15 Unintentional weight loss 473154335 Active 2024 Angela Mays MD [address], [place], [address] , [facility] 5 14:51:26 History of alcohol abuse 994583945 Active 2024 En Mcknight MD [address], [place], [address] , [facility] 5 16:17:30 Chronic anxiety 342751412 Active 2024 En Mcknight MD [address], [address], [place], [address] , [facility] [employer] [facility] 10:37:42 Ex-cigarette smoker 226853449 Active 2024 En Mcknight MD [address], [place], [address] , [facility] [employer] [facility] 10:50:21 Nodule of lung 152087396 Active 2024 En Mcknight MD [address], [place], [address] , [facility] [employer] 14:03:31 Microscopic hematuria 554769230 Active 2024 En Mcknight MD [address] [facility], [place], [address] , [facility] [employer] [facility] 16:01:11 Subclinical hyperthyroidi sm 252892442 Active 2024 En Mcknight MD [address] [facility], [place], [address] , [facility] [employer] 16:01:27 Multinodular goiter 631233385 Active 2024 Jose Amor MD [address] [facility], [place] [address], [place], [address] , [facility] [employer] 12:20:41 Thyroid nodule 402463042 Active 2024 Allyson Tinoco RN [facility], [facility] [employer] [facility] 12:17:36 Problem Notes None recorded. Procedures Surgical History Date Name Laterality Status Provider Name and Address Organization Details Recorded Time 03/09/20 24 Medicare Wellness CPT Code, subsequent completed Gertrude Tovar RN [facility] [employer] [facility] 02/03/2024 15:49:13 01/12/20 23 Medicare Wellness CPT Code, Initial completed Abimbola Manzo RN [facility] [employer] [facility] 01/08/2023 14:15:52 03/10/20 10 Cholecystectomy completed Frances Wilson RN [facility] 02/19/2025 09:27:16 12/30/18 99 hysterectomy completed Frances Wilson RN [facility] 02/19/2025 09:25:28 10/31/18 85 extraction of wisdom tooth completed Frances Wilson RN [facility] 02/19/2025 09:26:46 Imaging Results None recorded. Procedure Notes None recorded. Medical Equipment None Reported. Allergies Allergen ID Allergen Name Allergen Category Reaction Reaction Severity Criticality Documentation Date Start Date Code Code System Note Provider Name and Address Organization Details Recorded Time ibuprofen medicatio n Not available Not available Not available 09/23/2022 5640 RxNorm Not Available [facility] 3 08:14:04 amoxicill in medicatio n Not available Not available Not available 09/23/2022 723 RxNorm Not Available [facility] 3 08:14:04 Medications Name Sig Start Date Stop Date Status Note LastModified by Organization Details LastModified Time lisinopri l 20 mg-hydroc hlorothia zide 12.5 mg tablet Take 2 tablets by mouth once daily QA 2024 active Not Available Not Available Not [...] Updated DateTime 06/27/2025 162.56 cm 20.6 kg/m2 50903.08 g 97.8 [degF] Allyson Tinoco RN [facility] [employer] 06/27/2025 11:59:28 Social History Question Answer Notes LastModified by Organizat ion Details LastModified Time Tobacco Smoking Status Former Smoker Frances Wilson RN null, [employer] 02/19/2025 09:24:50 What Is Your Level Of Caffeine Consumption? Occasional 3 Glasses Of Tea Per Day [email or web address] Information not available 02/19/2025 Which Illicit Or Recreational Drugs Have You Used? Smoke CBD [email or web address] Information not available 02/19/2025 When Did You Quit Smoking? 16+yearssincel astcigarette Quit At Age 27 [email or web address] Information not available 02/19/2025 How Many Years Have You Used Illicit Or Recreational Drugs? 2 [email or web address] Information not available 02/19/2025 What Is Your Current Pack Years? 10-19packyears Information not available 02/19/2025 At What Age Did You Start Smoking Tobacco? 17 [email or web address] Information not available 02/19/2025 How Much Tobacco Do You Smoke? 0.25 PPD [email or web address] Information not available 02/19/2025 How Many Years Have You Smoked Tobacco? 10 Information not available 02/19/2025 Have You Used IV Drugs? No Information not available 02/19/2025 Sex: Unknown Functional Status Question Answer Note LastModified by Organizat ion Details LastModified Time Do you use any illicit or recreational drugs? Yes [email or web address] Information not available 02/19/2025 Do you or have you ever used any other forms of tobacco or nicotine? No Information not available 02/19/2025 What is your level of alcohol consumption? None [email or web address] Information not available 02/19/2025 Mental Status None recorded. Family History Relationship Description Onset Age of this Age Resolved Age Notes LastModified by Organization Details LastModified Time Mother Essential hypertension 40 69 8 aunts also have high BP [email or web address] Not available 02/19/2025 09:16:47 Mother Congestive heart failure 69 [email or web address] Not available 02/19 09:17:17 Mother Diabetes mellitus 69 [email or web address] Not available 02/19 09:17:42 Mother Cardiomegaly 69 [email or web address] Not kirstin ilable 02/19/2025 09:18:10 Mother Dialysis finding 68 69 [email or web address] Not available 02/19 09:22:22 Paternal Uncle Malignant neoplasm of colon 67 71 [email or web address] Not available 02/19 09:18:51 Father Depressive disorder 30 [email or web address] Not available 02/19 09:20:28 Brother Depressive disorder 58 64 Half Siblin g shared same Mom [email or web address] Not available 02/19/2025 09:20:28 Paternal Grandmother Anemia 102 [email or web address] Not available 09:21:16 Notes:NO ENT Medical History No medical history recorded. Gynecological HistoryNo gynecological history recorded. Obstetrics History GPAL:G 0 P 0 0 0 0 Past Encounters Encounter ID Performer Location Encounter Start Date Encounter Closed Date Diagnosis/Indication Diagnosis SNOMED-CT Code Diagnosis ICD10 Code Diagnosis IMO Codes Diagnosis Note [id number] CONNOR Christianson [facility] [address] [place] [address] 06/06/2025 11:47:08 06/06/2025 16:21:33 [id number] Jose Amor MD [facility] [place] [address] [place] [address] 06/27/2025 11:47:32 06/29/2025 09:59:38 Multinodular goiter 935865580 E04.2 31001 Health Concerns Section Related Observation LastModified by Organization Detai ls LastModified Time None Recorded Concern Status LastModified by Organization Details LastModified Time None Recorded Payers Encounter Date Sequence Insurance Name Policy Number Policy Millard Covered Member ID Millard Member ID Guarantor Name 06/27/2025 1 MEDICARE-MD (MEDICARE) Gerri Moreno [id number] Gerri Moreno Notes Date Note Type Note Provider Name and Address Organization Details Recorded Time 06/27/2025 text/html this patient had weight loss which was followed by a thyroid ultrasound. This revealed a 1.7 cm TI-RADS 5 nodule in the right and a 1.5 cm TI-RADS nodule on the left. Needle biopsy was recommended. Jose Amor MD [address] [place] [address], [place], [address], [facility] [employer] 06/27/2025 12:21:30 OBGyn Episode No OBEpisode recorded.
[2025-07-11 17:51] LABS: Vitamin B12 376.0 pg/mL (239-931)
[2025-07-12 15:09] LABS: Albumin 4.1 g/dL (2.9-4.4); Alpha-1-Globulin 0.2 g/dL (0.0-0.4); Alpha-2-Globulin 0.7 g/dL (0.4-1.0); Gamma Globulin 1.0 g/dL (0.4-1.8)
== END 2025-07-11 15:10 | disposition home or self-care (01) ==
LOC: ANHLAB 15:11
PROVIDERS: PCP Family Medicine; Visit Provider Internal Medicine Hematology & Oncology
DX: D64.9 Anemia, unspecified (principal)
CPT/HCPCS: 36415; 80053; 82607; 82728; 82746; 83540; 83550; 83921; 84155; 84165; 84238; 84443; 85025